=== PATIENT | female | born 1990 | race Caucasian/White ===

== ENCOUNTER 2025-05-21 08:41 | Outpatient (OUT) | payer SELFPAY ==
--- OUTSIDE RECORDS SUMMARY | 2025-05-21 08:51 | XMS_ITS | Encounter Summary ---
Author Organization [employer] Sys tem Address [id number] [address] [place] [address] Care Team Providers Care Community Planning Technician Name Role Phone Tonya Boles MD Primary Care Provider [phone] Encounter Details Date Type Department Care Team (Late st Contact Info) Description 07/19/2023 Telephone [facility]ne[facility] [address] [place] [address] Rica Jimenez Social History Tobacco Use Types Packs/Day Years Used Date Smoking Tobacco: Never Smokeless Tobacco: Never Alcohol Use Standard Drinks/Week Comments No 0 (1 standard drink = 0.6 oz pur e alcohol) Social Connection and Isolation Panel [NHANES] A nswer Date Recorded In a typical week, how many times do you talk on the phone with family, friends, or neighbors? Once a week 10/04/20 20 How often do you get togethe r with friends or relatives? Once a week 10/04/2020 How often do you attend chur ch or orthodoxy services? 1 to 4 times per year 10/04/2020 Do you belong to any clubs o r organizations such as tenriism groups, unions, fraternal or athletic groups, or school groups? Yes 10/04/2020 How often do you attend meet ings of the clubs or organizations you belong to? 1 to 4 times per year 10/04/2020 Are you , , di vorced, , never , or living with a partner? 10/04/2020 Overall Financial Resource Strain (CARDIA) Answe r Date Recorded How hard is it for you to pa y for the very basics like food, housing, medical care, and heating? Not hard at all 10/04/2020 PHQ-2 Answer Date Recorded Total Score 0 10/04/2020 [place] [facility] - Occupational Stress Questionnaire Answer Date Recorded Do you feel stress - tense, restless, nervous, or anxious, or unable to sleep at night because your mind is troubled all the time - these days? Not at all 10/04/2020 Exercise Vital Sign Answer Date Recorde d On average, how many days pe r week do you engage in moderate to strenuous exercise (like a brisk walk)? 0 days 10/04/2020 On average, how many minutes do you engage in exercise at this level? 0 min 10/04/2020 PRAPARE - Transportation Answer Date Re corded In the past 12 months, has l ack of transportation kept you from medical appointments or from getting medications? No 09/17 In the past 12 months, has l ack of transportation kept you from meetings, work, or from getting things needed for daily living? No 10/04/2020 [place] Depression Scale Answer Date Recorded [place] Depression Scale Total 3 11/21/2020 The thought of harming myself has occurred to me . Never 11/21/2020 Childcare Answer Date Recorded Do problems getting child ca re make it difficult for you to work or study? No 10/04/2020 Employment Answer Date Recorded Do you need help finding a [employer] career center and/or a training program? No 10/04/2020 Hunger Screening Answer Date Recorded Within the past 12 months we worried whether our food would run out before we got money to buy more. Never True 07/15/2023 Within the past 12 months th e food we bought just didn't last and we didn't have money to get more. Never True 07/15/2023 Purpose - Life Answer Date Recorded Purpose and direction in life Unknown Comments No Sex and Gender Information Value Date Recorded Sex Assigned at Not on file Legal Sex Female 11:46 AM EDT Gender Identity Not on file Sexual Orientation Not on file documented as of this encounter Miscellaneous Notes * Telephone Encounter - Rica Jimenez - 07/19/2023 1:36 PM EDT Patient called requesting the results for her HCG levels that she had drawn last week. Please advise. Thank you. * Telephone Encounter - Dari Estrada MD - 07/19/2023 1:36 PM EDT <5/NEGATIVE * Telephone Encounter - Torri Lazo LPN - 07/19/2023 1:36 PM EDT Pt aware of results. documented in this encounter Plan of Treatment Not on file documented as of this encounter Visit Diagnoses Not on filedocumented in this encounter Additional Health Concerns Assessment Noted Time PHQ-9 Depression Total Score: 0 10/04/20 20 10:11 PM EST documented as of this encounter Care Teams Community Planning Technician Relationship Specialty Start Date End Date Tonya Boles MD [address] [place] [address] PCP - General Family Medicine 03/29/17 documented as of this encounter
--- OUTSIDE RECORDS SUMMARY | 2025-05-21 08:51 | XMS_ITS | Clinical Summary ---
Author Organization [facility] Address [address] [place] [address] Care Team Providers Care Software Test Manager Name Role Phone Tonya Boles MD Primary Care Provider [phone] Allergies No known active allergies Medications MV-Min-Fe Fum-FA-DHA ( 1 PO) Take by mouth Active Docosahexaenoic Acid ( DHA) 200 MG capsuleIndicati ons: care, subsequent in first trimester ([facility]) Take 1 capsule by mouth Daily 30 capsule 11 08/23/2024 Active Encounters Date Type Department Care Team Description 04/25/2025 Patient Outreach [facility] [address] [place] [phone] Gladys Hodges LPN 04/23/2025 External Result Encounter [facility] External Department Unsolicited Hai Chow MD 04/22/2025 External Result Encounter [facility] External Department Unsolicited Hai Chow MD 04/22/2025 External Result Encounter [facility] External Department Unsolicited Hai Chow MD 04/22/2025 External Result Encounter [facility] External Department Unsolicited Hai Chow MD 04/22/2025 External Result Encounter [facility] External Department Unsolicited Hai Chow MD 04/22/2025 External Result Encounter [facility] External Department Unsolicited Hai Chow MD 04/20/2025 External Result Encounter [facility] External Department Unsolicited Hai Chow MD 04/17/2025 2:45 PM EDT Routine [facility] [address] [place] [address] Tr Baron MD Supervision of normal intrauterine in multigravida, third trimester ([facility]) (Primary Dx); 40 weeks gestation of ([facility]); 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 ([facility]) 04/17/2025 Bamboo flowsheet [facility] [address] [place] [phone] Tr Baron MD 04/17/2025 Travel 04/10/2025 2:00 PM EDT Routine [facility] [address] [place] [address] Rindayton, Tina E, DO 39 weeks gestation of ([facility]) 04/10/2025 Bamboo flowsheet [facility] [address] [place] [address] Rinkes, Tina E, DO 04/10/2025 Travel 04/03/2025 2:00 PM EDT Routine [facility] [place] [facility] [address] [place] [address] Rinkes, Tina E, DO 38 weeks gestation of ([facility]) 04/03/2025 Bamboo flowsheet [facility] [address] [place] [address] Rinkes, Tina E, DO 04/03/2025 Travel 03/27/2025 2:00 PM EDT Routine [facility] [place] [facility] [address] [place] [address] Rinkes, Tina E, DO 37 weeks gestation of ([facility]) 03/27/2025 Bamboo flowsheet [facility] [address] [place] [address] Rinkes, Tina E, DO 03/27/2025 Travel 03/20/2025 2:00 PM EDT Routine [facility] [place] [facility] [address] [place] [address] Tina Vega, DO 36 weeks gestation of ([facility]) 03/20/2025 Bamboo flowsheet [facility] [address] [place] [address] Tina Vega, DO 03/20/2025 Travel 03/13/2025 10:15 AM EDT Routine [facility] [address] [place] [place] [address] Tina Vega, DO 35 weeks gestation of ([facility]); screening for streptococcus B ([facility]) 03/13/2025 9:30 AM EDT Ancillary Procedure [facility] [address] [place] [place] [phone] History of pre-eclampsia in prior , currently in third trimester ([facility]); Encounter for ultrasound to check growth ([facility]) 03/13/2025 Travel 02/27/2025 3:30 PM EDT Routine [facility] [address] [place] [place] [address] Tina Vega, DO 33 weeks gestation of ([facility]) 02/27/2025 Bamboo flowsheet [facility] [address] [place] [address] Tina Vega, DO 02/27/2025 Travel from Last 3 Months Social History Tobacco Use Types Packs/Day Years Used Date Smoking Tobacco: Never Smokeless Tobacco: Never Tobacco Cessation:Counseling Given: Not Answered Alcohol Use Standard Drinks/Week Comments Not Currently 0 (1 standard drink = 0.6 oz pure alcohol) Caffeine intake: Occassionally PHQ-2 Answer Date Recorded Patient Health Questionnaire-2 Score 0 04/25/2025 Comments No Sex and Gender Information Value Date Recorded Sex Assigned at Not on file Legal Sex Female 6:33 PM EDT Gender Identity Not on file Sexual Orientation Not on file Last Filed Vital Signs Vital Sign Reading Time Taken Comments Blood Pressure 130/84 04/18/2025 8:17 AM EDT Pulse - - Temperature - - Respiratory Rate - - Oxygen Saturation - - Inhaled Oxygen Concentration - - Weight 80.7 kg (178 lb) 04/18/2025 8:17 AM EDT Height 162.6 cm (5' 4 ) 06/09/2022 12:00 PM EDT Body Mass Index 30.55 06/09/2022 12:00 PM EDT Plan of Treatment Upcoming Encounters Date Type Department Care Team (Late st Contact Info) Description 06/05/2025 11:15 AM EDT Visit [facility] [place] [facility] [address] [place] [address] Tina Vega DO [address] [place] [address] Procedures Procedure Name Priority Date/Time Associated Diagnosis Comments CBC WITH AUTO DIFFERENTIAL Routine 04/23/2025 7:04 AM EDT RPR W/RFX TO QUANT & TP ABS ([facility]) STAT 04/22/2025 5:50 AM EDT CBC WITH AUTO DIFFERENTIAL STAT 04/22/2025 5:50 AM EDT AMNISURE(PAMG-1) STAT 04/22/2025 5:31 AM EDT OB URINE DRUG SCREEN (NO THC) STAT 04/22/2025 5:30 AM EDT URINALYSIS REFLEX STAT 04/22/2025 5:3 0 AM EDT URINALYSIS REFLEX STAT 04/20/2025 10: 15 AM EDT POCT URINALYSIS DIPSTICK Routine 04/18/2025 8:17 AM EDT 40 weeks gestation of ([facility]) POCT URINALYSIS 4 DIPSTICK Routine 04/10/2025 2:21 PM EDT 39 weeks gestation of ([facility]) POCT URINALYSIS 4 DIPSTICK Routine 04/03/2025 2:02 PM EDT 38 weeks gestation of ([facility]) POCT URINALYSIS 4 DIPSTICK Routine 03/27/2025 1:53 PM EDT 37 weeks gestation of ([facility]) POCT URINALYSIS 4 DIPSTICK Routine 03/20/2025 2:07 PM EDT 36 weeks gestation of ([facility]) US OB FOLLOW UP TRANSABDOMINAL APPROACH Routine 03/13/2025 10:32 AM EDT History of pre-eclampsia in prior , currently in third trimester ([facility]) Encounter for ultrasound to check growth ([facility]) POCT URINALYSIS 4 DIPSTICK Routine 03/13/2025 10:20 AM EDT 35 weeks gestation of ([facility]) STREP B SCREEN Routine 03/13/2025 10:15 AM EDT screening for streptococcus B ([facility]) POCT URINALYSIS 4 DIPSTICK Routine 02/27/2025 3:27 PM EDT 33 weeks gestation of ([facility]) from Last 3 Months Results * (ABNORMAL) CBC auto differential (04/23/2025 7:04 AM EDT) Only the most recent of2 resultswithin the time period is included. WBC 10.5 3.8 - 11.6 [CFU]/mL 04/23/2025 7:16 AM EDT [facility] UNCORRECTED WHITE BLOOD COUNT 10.5 3.8 - 11.6 10*3/uL 04/23/2025 7:16 AM EDT [facility] RBC 4.05 3.60 - 5.00 10*6/uL 04/23/2025 7:16 AM EDT [facility] HEMOGLOBIN 12.5 11.8 - 15.4 g/dL 04/23/2025 7:16 AM EDT [facility] HEMATOCRIT 36.6 34.0 - 46.4 % 04/23/2025 7:16 AM EDT [facility] MCV 90.3 80 - 100 fL 04/23/2025 7:16 AM EDT [facility] MCH 30.9 24.7 - 34.3 pg 04/23/2025 7:16 AM EDT [facility] MCHC 34.2 32.0 - 35.0 g/dL 04/23/2025 7:16 AM EDT [facility] RED CELL DISTRIBUTION WIDTH, RDW 13.5 11.9 - 15.3 % 04/23/2025 7:16 AM EDT [facility] PLATELET COUNT 146(L) 150 - 450 10*3/uL 04/23/2025 7:16 AM EDT [facility] MEAN PLATELET VOLUME, MPV 9.4 6.3 - 10.7 fL 04/23/2025 7:16 AM EDT [facility] NEUTROPHILS, % 80.7 . % 04/23/2025 7:16 AM EDT [facility] LYMPHOCYTES, % 12.9 . % 04/23/2025 7:16 AM EDT [facility] MONOCYTE/MACROPHA GE, % 5.8 . % 04/23/2025 7:16 AM EDT [facility] EOSINOPHILS, % 0.3 . % 04/23/2025 7:16 AM EDT [facility] BASOPHILS, % 0.3 . % 04/23/2025 7:16 AM EDT [facility] NRBC 0.1 0 - 0.5 /100{WBC} 04/23/2025 7:16 AM EDT [facility] NEUTROPHILS 8.5(H) 1.8 - 7.7 10*3/uL 04/23/2025 7:16 AM EDT [facility] LYMPHOCYTES 1.3 1.00 - 4.8 10*3/uL 04/23/2025 7:16 AM EDT [facility] MONOCYTES 0.6 0.0 - 0.8 10*3/uL 04/23/2025 7:16 AM EDT [facility] EOSINOPHILS 0.0 0.0 - 0.45 10*3/uL 04/23/2025 7:16 AM EDT [facility] BASOPHILS 0.0 0.0 - 0.2 10*3/uL 04/23/2025 7:16 AM EDT [facility] Blood (Blood) 04/23/2025 7:0 4 AM EDT 04/23/2025 7:07 AM EDT [facility] - 04/23/2025 7:16 AM EDT Comment Draw at 630 am us Hai Chow MD LAB BLOOD ORDERABLES Final Res ult [facility] [address] [place] [address], [facility] [address] [place] [address] * RPR W/RFX TO QUANT & TP ABS ([facility]) (04/22/2025 5:50 AM EDT) RPR, RFX QUANT RPR Non Reactive Non Reactive 04/24/2025 5:07 AM [facility] RPR INTERPRETATION Comment . 04/24/2025 5:07 AM T [facility] Comment: Syphilis: RPR with Reflex to RPR Titer and Treponemal Antibodies, Traditional Screening and Diagnosis Algorithm Treponemal RPR RPR, Qn Ab Final Interpretation -------- --------- Non N/A N/A No laboratory evidence Reactive of syphilis. Retest in 2-4 weeks if recent exposure is suspected. -------- --------- Reactive >/=1:1 Non Nontreponemal antibodies Reactive detected. Syphilis unlikely; biological false positive possible. Retest in 2-4 weeks if recent exposure is suspected. -------- --------- Reactive >/=1:1 Reactive Treponemal and nontreponemal antibodies detected. Consistent with past or current (potential early) syphilis. Performed at: [address] [id number] Solder Deposit Operator: Thierno Kay PhD, Phone: [phone] Other Topography unknown / Unknown 04/22/2025 5:50 AM EDT 04/22/2025 5:59 AM EDT Hai Chow MD LAB BLOOD ORDERABLES Final Res ult Performing Organization Address City/[facility]/[place] [address], * AMNISURE(PAMG-1) (04/22/2025 5:31 AM EDT) AMNISURE Positive Negative 04/22/2025 5:54 AM EDT [facility] Other Topography unknown / Unknown 04/22/2025 5:31 AM EDT 04/22/2025 5:42 AM EDT Narrative [facility] - 04/22/2025 5:54 AM EDT Comment For suspected repture of membranes Hai Chow MD LAB BLOOD ORDERABLES Final Res ult Performing Organization Address [facility]/[place] [address], [place] [address] * OB URINE DRUG SCREEN (NO THC) (04/22/2025 5:30 AM EDT) AMPHETAMINE SCREEN,URINE Negative Negative 04/22/2025 6:18 AM EDT [facility] BARBITURATE SCREEN,URINE Negative Negative 04/22/2025 6:18 AM EDT [facility] BENZODIAZEPINES SCREEN,URINE Negative Negative 04/22/2025 6:18 AM EDT [facility] COCAINE SCREEN,URINE Negative Negative 04/22/2025 6:18 AM EDT [facility] OPIATE SCREEN,URINE Negative Negative 04/22 6:18 AM EDT [facility] PHENCYCLIDINE SCREEN, URINE Negative Negative 04/22/2025 6:18 AM EDT [facility] Comment: These are unconfirmed results and should not be used for legal purposes. Drug Cut-Off Concentration: AMPH 1000 ng/mL PRIMITIVO 200 ng/mL BRYAN 200 ng/mL COCM 300 ng/mL OP 300 ng/mL PCP 25 ng/mL Other 04/22/2025 5:30 AM EDT 04/22/2025 5:42 AM EDT Narrative [facility] - 04/22/2025 6:18 AM EDT Comment s/s of acute impairment us Hai Chow MD LAB BLOOD ORDERABLES Final Res ult [facility] [address] [place] [address], [facility] [address] [place] [address] * Urinalysis with reflex microscopic (04/22/2025 5:30 AM EDT) Only the most recent of2 resultswithin the time period is included. COLOR,URINE Colorless Yellow 04/22/2025 5:50 AM EDT [facility] APPEARANCE,URI NE Clear Clear 04/22/2025 5:50 AM EDT [facility] SPECIFICY GRAVITY,URINE 1.010 1.001 - 1.030 04/22/2025 5:50 AM T [facility] PH,URINE 7.5 5.0 - 9.0 04/22/2025 5:50 AM EDT [facility] LEUKOCYTE ESTERASE,URINE Negative Negative 04/22/2025 5:50 AM EDT [facility] NITRITE,URINE Negative Negative 04/22[facility] Negative Negative mg/dL 04/22/2025 5:[facility] GLUCOSE,URINE (UA) Normal Normal mg/dL 04/22/2025 5:[facility] KETONES,URINE Negative Negative 04/22/2025 5:50 AM EDT [facility] UROBILINOGEN,U RINE Normal Normal mg/dL 04/22/2025 5:50 [facility] BILIRUBIN,URIN E Negative Negative 04/22/2025 5:[facility] OCCULT BLOOD,URINE Trace Negative 04/22/2025 5:[facility] RBC,URINE 1-2 0 - 4 [HPF] 04/22/2025 5:52 AM EDT [facility] WBC,URINE 1-2 0 - 4 [HPF] 04/22/2025 5:52 [facility] SQUAMOUS EPITHELIAL CELL,URINE 3-4 0 - 2 [HPF] 04/22/2025 5:52 AM [facility] BACTERIA,URINE Rare None Seen [HPF] 04/22/2025 5:52 AM [facility] HYALINE CASTS,URINE None 0 - 8 [LPF] 04/22/2025 5:52 AM [facility] Other 04/22/2025 5:30 AM EDT 04/22/2025 5:42 AM EDT Narrative [facility] - 04/22/2025 5:52 AM EDT Comment c/o urinary symptoms or increased blood pressure Name Collection Type:: Clean-Voided Midstream us Hai Chow MD LAB URINE ORDERABLES Final Res ult [facility] [address] [place] [address], [facility] [address] [place] [address] * Urine dip (04/18/2025 8:17 AM EDT) Glucose, UA Negative Negative - 2000(110) ++++ mg/dL Protein, UA Negative Negative - 1999(20) ++++ mg/dL Urine 04/18/2025 8:17 AM EDT us Tr Baron MD POINT OF CARE TEST ENTER/EDIT ORDERABLES Final Result * POCT URINALYSIS 4 DIPSTICK (04/10/2025 2:21 PM EDT) Only the most recent of6 resultswithin the time period is included. Glucose, UA Negative Negative - 1999(110) ++++ mg/dL Protein, UA Negative Negative - 1999(20) ++++ mg/dL Urine 04/10/2025 2:21 PM EDT Tina Vega DO POINT OF CARE TEST ENTER/ED IT ORDERABLES Final Result * US OB follow up transabdominal approach (03/13/2025 10:32 AM EDT) Anatomical Region Laterality Modality Body Ultrasound Study GA Study Date Study TEENA Working TEENA (Source) 03/13/2025 04/17/2025 (Last Menstrua l Period) Fetus A Measurements Value GA (days) Biparietal Diameter Head Circumference Abdominal Circumference Femur Length Ulna Length Humerus Length Tibia Length Amniotic Fluid Index Quadrant 1 Amniotic Fluid Index Quadrant 2 Amniotic Fluid Index Quadrant 3 Amniotic Fluid Index Quadrant 4 Amniotic Fluid Index Deep Vertical Pocket UA SD Ratio UA Resistance Index UA Pulsatility Index MCA SD Ratio MCA Resistance Index MCA Pulsatility Index Heart Rate TWIN DISCORDANCE CERVICAL W/FUNDAL PRESSURE CERVICAL W/ VALSALVA Narrative 03/21/2025 12:51 PM EDT There is a single intrauterine visualized. Overall, biometry is consistent with the established dates. The AC measures at the 97th percentile. The EFW is in the 82% . The anatomy visualized appears normal. The amniotic fluid index measures 11.3 cm. us Tina Vega DO IMG OB US PROCEDURES Final Result * Strep B screen (03/13/2025 10:15 AM EDT) [facility] ORGANISM Strep agalactiae - (group b) 03/15/2025 8:45 AM EDT [facility] Swab Vaginal swab / Unknown 03/13/2025 10:15 AM EDT 03/13/2025 3:35 PM EDT Tina Vega DO LAB MICROBIOLOGY - GENERAL ORDERABLES Final Result Performing Organization Address City/State/[facility] Co de Phone Number [facility] [address] [place] [address], [facility] [address] [place] [address] from Last [address] [place] [address] [facility] Care Teams Software Test Manager Relationship Specialty Start Date End Date Tonya Boles MD PCP - General Family Medicine 02/23/23
--- OUTSIDE RECORDS SUMMARY | 2025-05-21 08:51 | XMS_ITS | Encounter Summary ---
Author Organization [facility] Address [id number] [address] [place] [address] Care Team Providers Care Promotions Firm Accounts Manager Name Role Phone Tonya Boles MD Primary Care Provider [phone] Encounter Details Date Type Department Care Team (Late st Contact Info) Description 07/10/2020 Telephone [facility] Women's Services - [facility] [address] [place] [address] Mary Jo Pedro MA Social History Tobacco Use Types Packs/Day Years Used Date Smoking Tobacco: Never Smokeless Tobacco: Never Alcohol Use Standard Drinks/Week Comments No 0 (1 standard drink = 0.6 oz pur e alcohol) Childcare Answer Date Recorded Childcare Unknown 03/29/2019 Employment Answer Date Recorded Employment Unknown 03/29/2019 Comments Yes Sex and Gender Information Value Date Recorded Sex Assigned at Not on file Legal Sex Female 11:46 AM EDT Gender Identity Not on file Sexual Orientation Not on file COVID-19 Exposure Response Date Recorded In the last month, have you been in contact with someone who was confirmed or suspected to have Coronavirus / COVID-19? No / Unsure 07/04/2020 8:45 AM EDT documented as of this encounter Miscellaneous Notes * Telephone Encounter - Mary Jo Pedro MA - 07/10/2020 1:58 PM EDT Patient called asking for her 28 week lab results Results given to patient. Clarified And ok'd withINES Chacko MA 07/10/20 1400 * Telephone Encounter - Mary Jo Pedro MA - 07/10/2020 1:58 PM EDT Patient called with UTI symptoms- She is going to stop by office and drop Urine off to send. I let patient know we would let her know if prescription needs sent. Mary Jo Pedro MA 07/12/20 0811 documented in this encounter Plan of Treatment Not on file documented as of this encounter Visit Diagnoses Not on filedocumented in this encounter Additional Health Concerns Infection Onset Date Last Indicated Resolved Time COVID-19 Rule-Out 10/04/2020 10/04/2020 10/04/2020 9:34 PM EST documented as of this encounter Care Teams Promotions Firm Accounts Manager Relationship Specialty Start Date End Date Elvi, Tonya Larson MD [address] [place] [address] PCP - General Family Medicine 03/29/17 documented as of this encounter
--- OUTSIDE RECORDS SUMMARY | 2025-05-21 08:51 | XMS_ITS | Clinical Summary ---
Author Organization [facility] tem Address [id number] [address] [place] [address] Care Team Providers Care Quilting Machine Helper Name Role Phone Tonya Boles MD Primary Care Provider [phone] Allergies No known active allergies Medications [id number]-[id number] 9-dha 31 mg iron- 1 mg-200 mg capsuleIndicati ons:Patient desires Take 1 capsule by mouth in the morning. 90 capsule 3 07/15/2023 Active magnesium oxide (MAGOX) 400 mg tablet Take 1 tablet (400 mg total) by mouth in the morning. Active Active Problems Problem Noted Date Diagnosed Date Acute headache 01/17/2025 History of pre-eclampsia 01/17/2025 H/O section 11/21/2020 H/O maternal third degree pe rineal laceration, currently 04/29/2020 H/O acute pancreatitis 01/14/2017 Estimated Date of Delivery Comme nts Yes 04/17/2025 Based on Patient Reported Resolved Problems Problem Noted Date Diagnosed Date Resolved Date Acute headache 02/27/2020 09/02/2020 Overview (02/27/2020): Mg 400 mg/day ordered Immunizations Immunization Administration Dates Next Due Tdap 07/25/2020, 7(Deferred: - Pt states she already had TDAP vaccine),06/10/2017 Family History Medical History Relation Name Comments Other Father MVA Diabetes Maternal Grandfather No Known Problems Maternal Grandmother No Known Problems Mother Diabetes Paternal Grandfather Other Paternal Grandfather Natural Causes Other Paternal Grandmother Natural Causes Breast cancer Neg Hx Colon cancer Neg Hx Ovarian cancer Neg Hx Stroke Neg Hx Relation Name Status Comments Father Maternal Grandfather Maternal Grandmother Alive Mother Alive Paternal Grandfather Paternal Grandmother Social History Tobacco Use Types Packs/Day Years Used Date Smoking Tobacco: Never Smokeless Tobacco: Never Alcohol Use Standard Drinks/Week Comments No 0 (1 standard drink = 0.6 oz pur e alcohol) [facility] Utilities Answer Date Recorded In the past 12 months has th e electric, gas, oil, or water company threatened to shut off services in your home? No 01/17/2025 Social Connection and Isolation Panel [NHANES] A nswer Date Recorded In a typical week, how many times do you talk on the phone with family, friends, or neighbors? Once a week 10/04/20 How often do you get togethe r with friends or relatives? Once a week 10/04/2020 How often do you attend chur ch or restorationist services? 1 to 4 times per year 10/04/2020 Do you belong to any clubs o r organizations such as jehovah's witness groups, unions, fraternal or athletic groups, or [...] Answer Date Recorded Total Score 0 10/04/2020 [facility] of Occupat ional Health - Occupational Stress Questionnaire Answer Date Recorded [...] medical appointments or from getting medications? No 11/2024 In the past 12 months, has l ack of transportation kept you from meetings, work, or from getting things needed for daily living? No 01/17/2025 [place] Depression Scale Answer Date Recorded [place] Depression Scale Total 3 11/21/2020 The thought of harming myself has occurred to me . Never 11/21/2020 Housing Instability Answer Date Recorde d Are you worried or concerned that in the next two months you may not have stable housing that you own, rent or stay in as a part of a household? No 01/17/2025 Childcare Answer Date Recorded Do problems getting child ca re make it difficult for you to work or study? No 10/04/2020 Employment Answer Date Recorded Do you need help finding a [employer] career center and/or a training program? No 10/04/2020 Hunger Screening Answer Date Recorded Within the past 12 months we worried whether our food would run out before we got money to buy more. Never True 01/17/2025 Within the past 12 months th e food we bought just didn't last and we didn't have money to get more. Never True 01/17/2025 Purpose - Life Answer Date Recorded Purpose and direction in life Unknown Estimated Date of Delivery Comme nts Yes 04/17/2025 Based on Patient Reported Sex and Gender Information Value Date Recorded Sex Assigned at Not on file Legal Sex Female 11:46 AM EDT Gender Identity Not on file Sexual Orientation Not on file Last Filed Vital Signs Vital Sign Reading Time Taken Comments Blood Pressure 120/73 01/17/2025 5:00 PM EDT Pulse 66 01/17/2025 5:00 PM EDT Temperature 36.7 C (98.1 F) 01/17/2025 4:00 PM EDT Respiratory Rate 16 01/17/2025 5:00 PM EDT Oxygen Saturation 99% 10/06/2020 9:18 PM EST Inhaled Oxygen Concentration - - Weight 56.7 kg (125 lb) 07/15/2023 3:26 PM EDT Height 162.6 cm (5' 4 ) 07/15/2023 3:26 PM EDT Body Mass Index 21.46 07/15/2023 3:26 PM EDT Plan of Treatment Health Maintenance Due Date Last Done Comments Depression Screening 11/21/2021 11/21/2020 Pap Smear 04/02/2023 04/02/2020, 12/14/2016 Adult BMI Screening 07/15/2024 07/15/2023 Influenza Vaccine 06/18/2025 07/02/2020, , 11/17/2016 Tobacco Screening 01/17/2026 01/17/2025 DTaP,Tdap and Td Vaccines (1 0 - Td or Tdap) 07/25/2030 07/25/2020, 06/10/2017, 07/15/2011, Additional history exists Medical Devices Not on file Procedures Procedure Name Priority Date/Time Associated Diagnosis Comments PAP SMEAR Routine 04/02/2020 11:15 AM EDT Cervical smear, as part of routine gynecological examination 12 weeks gestation of from Last 3 Months or Most Recently Relevant to Health Maintenance Results * Pap Smear (04/02/2020 11:15 AM EDT) 04/02/2020 11:1 5 AM EDT 04/03/2020 11:16 AM EDT Narrative COPATH - 04/05/2020 9:55 AM EDT [facility] [address] [place] [address] Gynecologic Cytology Consultation Patient Name: DONNELL HUNTER : 1990 (Age: 29) Gender: F Taken: 04/02/2020 Reported: 04/05/2020 Physician(s): LIZ Carter ([phone]) Copy To: [facility]. Rec. #: [id number] Acct: # [id number] Final Cytologic Interpretation ThinPrep Pap Test (Cervical): Satisfactory for evaluation. A transformation zone component is present. NEGATIVE FOR INTRAEPITHELIAL LESION OR MALIGNANCY. [facility]/04/05/2020 Interpretation performed at [facility], [address] [place] [address], License number: [id number]. Electronically Signed Out By Neymar Cancelli, CT(ASCP) Date of Last Menstrual Period: 01/05/2020 Other Clinical Conditions: Z01.419 Bending Shed Worker exam wo/abn findings Z3A.12 Source of Specimen ThinPrep Pap Test (Cervical) Thin Prep Pap (GREENHOUSE SPECIALIST) Fee Code(s): G0145 The Pap test is a screening test with an inherent, but low, probability of error. The Pap test is primarily effective for the diagnosis and prevention of squamous cell carcinoma. Regular screening is critical for prevention. ThinPrep liquid-based slides, which meet the Recovery Room Nurse criteria for automated screening, have been screened by the BOARDZPrep Imaging System (as of 07/04/07) along with an additional manual rescreening by a auto mechanic and, if indicated, by a pathologist. Ginna Romo BUSINESS PROPOSAL REP-TOOL TECHNICIAN PATHOLOGY/CYTOLOGY ORDER CHYNA Final Result COPATH from Last 3 Months or Most Recently Relevant to Health Maintenance Insurance ANTHEM Advance Directives * Full Code (Latest Code Status on File) Date Activated Date Inactivated Comments 10/04/2020 10:15 PM 10/07/2020 11:18 AM * Full Code Date Activated Date Inactivated Comments 10/04/2020 1:57 PM 10/04/2020 7:32 PM * Full Code Date Activated Date Inactivated Comments 07/23/2017 10:19 PM 07/24/2017 5:32 PM Care Teams Quilting Machine Helper Relationship Specialty Start Date End Date Sundayly, Tonya Larson MD [address] [place] [address] PCP - General Family Medicine 03/29/17
--- OUTSIDE RECORDS SUMMARY | 2025-05-21 08:51 | XMS_ITS | Encounter Summary ---
Author Organization [employer] tem Address [id number] [address] [place] [address] Care Team Providers Care Assessor Name Role Phone Tonya Boles MD Primary Care Provider [phone] Reason for Visit * Reason Comments Med Refill Encounter Details Date Type Department Care Team (Late st Contact Info) Description 04/19/2020 Refill [facility]ne[facility] [address] [place] [id number] Ginna Romo, FORMING AND ASSEMBLING SUPERVISOR-BUS INFO CONSULTANT [address] [facility] [place], [place] [id number] 12 weeks gestation of Social History Tobacco Use Types Packs/Day Years [...] have Coronavirus / COVID-19? No / Unsure 04/02/2020 3:30 PM EDT documented as of this encounter Plan of Treatment Not on file documented as of this encounter Visit Diagnoses Diagnosis 12 weeks gestation of documented in this encounter Additional Health Concerns Infection Onset Date Last Indicated Resolved Time COVID-19 Rule-Out 10/04/2020 10/04/2020 10/04/2020 9:34 PM EST documented as of this encounter Care Teams Assessor Relationship Specialty Start Date End Date Wonderly, Tonya Larson MD [address] [place] [address] PCP - General Family Medicine 03/29/17 documented as of this encounter
== END 2025-05-21 13:55 | disposition home or self-care (01) ==
LOC: FBCO 08:49
PROVIDERS: Visit Provider Obstetrics & Gynecology
DX: Z39.1 Encounter for care and examination of lactating mother (principal)

== ENCOUNTER 2025-05-29 08:15 | Outpatient (OUT) | payer SELFPAY ==
--- OUTSIDE RECORDS SUMMARY | 2025-05-16 20:16 | XMS_ITS | Continuity of Care Document ---
Author Organization [facility] Address [address] [place] [address] Phone Care Team Providers Care Rodding Machine Tender Name Role Phone Tina Vega DO Attending Provider [phone] NO FAMILY, PHYSICIAN Primary Care Provider Unava Belia Negrete MD Attending Provider [phone] Hai Chow MD Attending Provider Hai Chow MD Admit Provider Obinna Gray MD Attending Provider Summer Barillas MD Attending Provider Care Teams Patient Care Team Team Status: Active Member Role Status Dates PHYSICIAN NO FAMILY Primary Care Provider Active Visit Care Team Team Status: Inactive Member Role Status Dates Tina Vega DO Attending Provider Active S tart: March 13, 2025 End: March 13, 2025 Visit Care Team Team Status: Inactive Member Role Status Dates PHYSICIAN NO FAMILY Primary Care Provider Active Start: April 17, 2025 End: April 17, 2025 Belia Marin MD Attending Provider Active Star t: April 17, 2025 End: April 17, 2025 Visit Care Team Team Status: Inactive Member Role Status Dates PHYSICIAN NO FAMILY Primary Care Provider Active Start: April 20, 2025 End: April 20, 2025 Hai Chow MD Attending Provider Active St art: April 20, 2025 End: April 20, 2025 Visit Care Team Team Status: Inactive Member Role Status Dates PHYSICIAN NO FAMILY Primary Care Provider Active Start: April 22, 2025 End: April 23, 2025 Hai Chow MD Admit Provider Active Start: April 22, 2025 End: April 23, 2025 Hai Chow MD Attending Provider Active St art: April 22, 2025 End: April 23, 2025 Visit Care Team Team Status: Inactive Member Role Status Dates PHYSICIAN NO FAMILY Primary Care Provider Active Start: April 25, 2025 End: April 25, 2025 Obinna Gray MD Attending Provider Active Start: April 25, 2025 End: April 25, 2025 Visit Care Team Team Status: Inactive Member Role Status Dates PHYSICIAN NO FAMILY Primary Care Provider Active Start: May 11, 2025 End: May 11, 2025 Summer Barillas MD Attending Provider Active Star t: May 11, 2025 End: May 11, 2025 Patient Care Team Team Status: Inactive Member Role Status Dates PHYSICIAN NO FAMILY Primary Care Provider Active Start: May 16, 2025 End: May 16, 2025 Obinna Gray MD Attending Provider Active Start: May 16, 2025 End: May 16, 2025 Chief Complaint and Reason for Visit Chief Complaint Admit Date Z36.85 March 13, 2025 10:15 am NST April 17, 2025 2:31p m 40 wks contractions April 20, 2025 9:31a m 40 weeks IUP, Contractions April 22 4:51am z39.1 April 25, 2025 1:39p m 092.4 May 11, 2025 10:3 5am 092.4 May 16, 2025 1:23 pm Reason for Visit Admit Date 40 weeks gestation of April 4:51am (vaginal after ) April 22, 2025 4:51am Reason for Referral Referring Provider Name Referring Provider Address Referring Provider Phone Referral Date Requested Appointment Date Referral Reason Belia Marin [address] [facility] [address] Work Phone: Please keep appointment this coming week. Please marissa p appointment this coming week. Allergies, Adverse Reactions, Alerts Allergen Type Severity Reaction Last Updated Verified Status No Known Allergies Allergy Unknown April 17, 2025 2:55pm Yes Active Social History Smoking Status Status Start Date End Date Date of Observa tion Never smoked tobacco (finding) April 22, 2025 5:25pm Observation Status Observation Response Date of Response Legal Sex Female (finding) Sex Assigned At Female December Family History Relationship Condition Age at Onset Recorded Date/T patt Not Specified No pertinent family history Unknown father Unknown Problems Inactive/Resolved Problems Medical Problem Onset Date Status 40 weeks gestation of Unknown Resolved (vaginal after ) Unknown Resolved Medications Medication Status Dose Units Route Directions Qty Days St art Date Stop Date End Date Instructions Adherence Vit No.126-Iron -Folic (Classic ) 28 mg iron- 800 mcg tablet Active 1 TAB PO Daily April 22, 2025 12:00a m Unknown Immunizations Immunization Event Date Not Given Reason Dose Number Kiln Tender Lot Number Vaccine Information Statement (VIS) Detail Administration Location Tetanus, Diphtheria, Pertussis (Tdap) April 23, 2025 Patient Refused [facility] Procedures Procedure Date Performed Status Group B Streptococcus Culture March 13, 2025 co mpleted Delivery of Products of Conception, External Allison remy April 22, 2025 active Repair Perineum Muscle, Open Approach April 22, 2025 active Relevant Diagnostic Tests and/or Laboratory Data Laboratory Results Test Collection Date/Time Result Date/Time Result Interpretation Reference Range Result Comment Performing Site Correcte d White Blood Count April 23, 2025 7:04am April 23, 2025 7:16am 10.5 10*3/uL 3.8-11.6 [facility] [id number] [address] [facility] [address] Uncorrec kvng WBC Count April 23, 2025 7:04am April 23, 2025 7:16am 10.5 10*3/uL 3.8-11.6 [facility] [id number] [address] [facility] [address] Red Blood Count April 23, 2025 7:04am April 23, 2025 7:16am 4.05 10*6/uL 3.60-5.00 [facility] [id number] [address] [facility] [address] Hemoglob in April 23, 2025 7:04am April 23, 2025 7:16am 12.5 g/dL 11.8-15.4 [facility] [id number] [address] [facility] [address] Hematocr it April 23, 2025 7:04am April 23, 2025 7:16am 36.6 % 34.0-46.4 [facility] [id number] [address] [facility] [address] Mean Corpuscu lar Volume April 23, 2025 7:04am April 23, 2025 7:16am 90.3 fL 80-100 [facility] [id number] [address] [facility] [address] Mean Corpuscu lar Hemoglob in April 23, 2025 7:04am April 23, 2025 7:16am 30.9 pg 24.7-34.3 [facility] [id number] [address] [facility] [address] Mean Corpuscu lar Hemoglob in Concent April 23, 2025 7:04am April 23, 2025 7:16am 34.2 g/dL 32.0-35.0 [facility] [id number] [address] [place] [address] Red Cell Distribu tion Width April 23, 2025 7:04am April 23, 2025 7:16am 13.5 % 11.9-15.3 [facility] [id number] [address] [facility] [address] Platelet Count April 23, 2025 7:04am April 23, 2025 7:16am 146 10*3/uL Below low normal 150-450 [facility] [id number] [address] [facility] [address] Mean Platelet Volume April 23, 2025 7:04am April 23, 2025 7:16am 9.4 fL 6.3-10.7 [facility] [id number] [address] [facility] [address] Neutroph ils (%) (Auto) April 23, 2025 7:04am April 23, 2025 7:16am 80.7 % . [facility] [id number] [address] [facility] [address] Lymphocy hemant (%) (Auto) April 23, 2025 7:04am April 23, 2025 7:16am 12.9 % . [facility] [id number] [address] [place] [address] Monocyte s (%) (Auto) April 23, 2025 7:04am April 23, 2025 7:16am 5.8 % . [facility] [id number] [address] [facility] [address] Eosinoph ils (%) (Auto) April 23, 2025 7:04am April 23, 2025 7:16am 0.3 % . [facility] [id number] [address] [facility] [address] Basophil s (%) (Auto) April 23, 2025 7:04am April 23, 2025 7:16am 0.3 % . [facility] [id number] [address] [facility] [address] Nucleate d RBC Relative Count (auto) April 23, 2025 7:04am April 23, 2025 7:16am 0.1 /100{WBC} 0-0.5 [facility] [id number] [address] [facility] [address] Neutroph ils # (Auto) April 23, 2025 7:04am April 23, 2025 7:16am 8.5 10*3/uL Above high normal 1.8-7.7 [facility] [id number] [address] [facility] [address] Lymphocy hemant # (Auto) April 23, 2025 7:04am April 23, 2025 7:16am 1.3 10*3/uL 1.00-4.8 [facility] [id number] [address] [facility] [address] Monocyte s # (Auto) April 23, 2025 7:04am April 23, 2025 7:16am 0.6 10*3/uL 0.0-0.8 [facility] [id number] [address] [facility] [address] Eosinoph ils # (Auto) April 23, 2025 7:04am April 23, 2025 7:16am 0.0 10*3/uL 0.0-0.45 [facility] [id number] [address] [facility] [address] Basophil s # (Auto) April 23, 2025 7:04am April 23, 2025 7:16am 0.0 10*3/uL 0.0-0.2 [facility] [id number] [address] [facility] [address] Urine Color April 20, 2025 10:15am April 20, 2025 10:45am Light-yell ow Yellow [facility] [id number] [address] [facility] [address] Urine Color April 22, 2025 5:30am April 22, 2025 5:50am Colorless Yellow [facility] [id number] [address] [facility] [address] Urine Appearan ce April 20, 2025 10:15am April 20, 2025 10:45am Cloudy Abnormal (applies to non-numeric results) Clear [facility] [id number] [address] [facility] [address] Urine Appearan ce April 22, 2025 5:30am April 22, 2025 5:50am Clear Clear [facility] [id number] [address] [facility] [address] Urine Specific [place] April 20, 2025 10:15am April 20, 2025 10:45am 1.006 1.001-1.03 0 [facility] [id number] [address] [facility] [address] Urine Specific [place] April 22, 2025 5:30am April 22, 2025 5:50am 1.010 1.001-1.03 0 [facility] [id number] [address] [facility] [address] Urine pH April 20, 2025 10:15am April 20, 2025 10:45am 7.0 5.0-9.0 [facility] [id number] [address] [facility] [address] Urine pH April 22, 2025 5:30am April 22, 2025 5:50am 7.5 5.0-9.0 [facility] [id number] [address] [facility] [address] Urine Leukocyt e Esterase April 20, 2025 10:15am April 20, 2025 10:45am 1+ Above high normal Negative [facility] [id number] [address] [facility] [address] Urine Leukocyt e Esterase April 22, 2025 5:30am April 22, 2025 5:50am Negative Negative [facility] [id number] [address] [facility] [address] Urine Nitrite April 20, 2025 10:15am April 20, 2025 10:45am Negative Negative [facility] [id number] [address] [facility] [address] Urine Nitrite April 22, 2025 5:30am April 22, 2025 5:50am Negative Negative [facility] [id number] [address] [facility] [address] Urine Protein April 20, 2025 10:15am April 20, 2025 10:45am Negative mg/dL Negative [facility] [id number] [address] [facility] [address] Urine Protein April 22, 2025 5:30am April 22, 2025 5:50am Negative mg/dL Negative [facility] [id number] [address] [facility] [address] Urine Glucose (UA) April 20, 2025 10:15am April 20, 2025 10:45am Normal mg/dL Normal [facility] [id number] [address] [facility] [address] Urine Glucose (UA) April 22, 2025 5:30am April 22, 2025 5:50am Normal mg/dL Normal [facility] [id number] [address] [facility] [address] Urine Ketones April 20, 2025 10:15am April 20, 2025 10:45am Negative Negative [facility] [id number] [address] [facility] [address] Urine Ketones April 22, 2025 5:30am April 22, 2025 5:50am Negative Negative [facility] [id number] [address] [facility] [address] Urine Urobilin ogen April 20, 2025 10:15am April 20, 2025 10:45am Normal mg/dL Normal [facility] [id number] [address] [facility] [address] Urine Urobilin ogen April 22, 2025 5:30am April 22, 2025 5:50am Normal mg/dL Normal [facility] [id number] [address] [place] [address] Urine Bilirubi n April 20, 2025 10:15am April 20, 2025 10:45am Negative Negative [facility] [id number] [address] [place] [address] Urine Bilirubi n April 22, 2025 5:30am April 22, 2025 5:50am Negative Negative [facility] [id number] [address] [facility] [address] Urine Occult Blood April 20, 2025 10:15am April 20, 2025 10:45am Negative Negative [facility] [id number] [address] [facility] [address] Urine Occult Blood April 22, 2025 5:30am April 22, 2025 5:50am Trace Above high normal Negative [facility] [id number] [address] [facility] [address] Urine RBC April 20, 2025 10:15am April 20, 2025 10:51am 1-2 [HPF] 0-4 [facility] [id number] [address] [facility] [address] Urine RBC April 22, 2025 5:30am April 22, 2025 5:52am 1-2 [HPF] 0-4 [facility] [id number] [address] [facility] [address] Urine WBC April 20, 2025 10:15am April 20, 2025 10:51am None seen [HPF] 0-4 [facility] [id number] [address] [facility] [address] Urine WBC April 22, 2025 5:30am April 22, 2025 5:52am 1-2 [HPF] 0-4 [facility] [id number] [address] [facility] [address] Urine Squamous Epitheli al Cells April 20, 2025 10:15am April 20, 2025 10:51am 10-19 [HPF] Above high normal 0-2 [facility] [id number] [address] [facility] [address] Urine Squamous Epitheli al Cells April 22, 2025 5:30am April 22, 2025 5:52am 3-4 [HPF] Above high normal 0-2 [facility] [id number] [address] [facility] [address] Urine Bacteria April 20, 2025 10:15am April 20, 2025 10:51am 4+ [HPF] Above high normal None Seen [facility] [id number] [address] [facility] [address] Urine Bacteria April 22, 2025 5:30am April 22, 2025 5:52am Rare [HPF] None Seen [facility] [id number] [address] [facility] [address] Urine Hyaline Casts April 20, 2025 10:15am April 20, 2025 10:51am 0-8 [LPF] 0-8 [facility] [id number] [address] [place] [address] Urine Hyaline Casts April 22, 2025 5:30am April 22, 2025 5:52am None [LPF] 0-8 [facility] [id number] [address] [place] [address] Membrane s Rupture (PAMG-1) April 22, 2025 5:31am April 22, 2025 5:54am Positive Above high normal Negative [facility] [id number] [address] [place] [address] Urine Amphetam bob Screen April 22, 2025 5:30am April 22, 2025 6:18am Negative Negative [facility] [id number] [address] [place] [address] Urine Barbitur ates Screen April 22, 2025 5:30am April 22, 2025 6:18am Negative Negative [facility] [id number] [address] [place] [address] Urine Benzodia zepines Screen April 22, 2025 5:30am April 22, 2025 6:18am Negative Negative [facility] [id number] [address] [place] [address] Urine Cocaine Screen April 22, 2025 5:30am April 22, 2025 6:18am Negative Negative [facility] [id number] [address] [place] [address] Urine Opiates Screen April 22, 2025 5:30am April 22, 2025 6:18am Negative Negative [facility] [id number] [address] [place] [address] Urine Phencycl idine Screen April 22, 2025 5:30am April 22, 2025 6:18am Negative Negative These are unconfirme d results and should not be used for legal purposes. Drug Cut-Off Concentrat ion: AMPH 1000 ng/mL PRIMITIVO 200 ng/mL BRYAN 200 ng/mL COCM 300 ng/mL OP 300 ng/mL PCP 25 ng/mL [facility] [id number] [address] [place] [address] RPR w/Reflex to Titer April 22, 2025 5:50am April 24, 2025 5:07am Non reactive Non Reactive [facility] 00 Syphilis Interpre tation April 22, 2025 5:50am April 24, 2025 5:07am Comment . Syphilis: RPR with Reflex to RPR Titer and Treponemal Antibodies , Traditiona l Screening and Diagnosis Algorithm- --------- Treponemal RPR RPR, Qn Ab Final Interpreta tion------ -- --------- ----Non N/A N/A No laboratory evidenceRe active of syphilis. Retest in 2-4 weeks if recent exposure is suspected. -------- --------- ----Reacti ve >/=1:1 Non Nontrepone mal antibodies Reactive detected. Syphilis unlikely; biological false positive possible. Retest in 2-4 weeks if recent exposure is suspected. -------- --------- ----Reacti ve >/=1:1 Reactive Treponemal and nontrepone mal antibodies detected. Consistent with past or current (potential early) syphilis.P erformed at: [facility] [id number] [place], [place] [id number] ab Director: Thierno Kay PhD, Phone: [phone] [email or web address] Microbiology Results Procedure Source Result Collection Date/Time Result Date/Time Result Comment Performing Site Group B Streptococcus Culture Vaginal/R ectal Strep agalactiae - (group b) March 13, 2025 10:15am March 15, 2025 8:45am [facility] [id number] [address] [place] [address] Vital Signs Vital Reading Result Reference Range Collection Date/Time Height 64 [in_i] April 17, 2025 2:56pm Weight 81.64 kg April 17, 2025 2:56pm BP Systolic 129 mm[Hg] 100-140 April 17, 2025 3:30pm BP Diastolic 84 mm[Hg] 60-100 April 17, 2025 3:30pm Height 63 [in_i] April 20, 2025 10:29am Weight 81.64 kg April 20, 2025 10:29am Body Temperature 98.0 [degF] 97.6-99.0 April 20, 2 025 10:30am Heart Rate 72 /min 60-100 April 20, 2025 10:30am Respiratory rate 16 /min 12-April 20, 2 025 10:30am Oxygen saturation by Pulse oximetry 98 % 95-100 April 20, 2025 10:30 am BP Systolic 132 mm[Hg] 100-140 April 20, 2025 10:30am BP Diastolic 85 mm[Hg] 60-100 April 20, 2025 10:30am Height 63 [in_i] April 22, 2025 5:18am Weight 81.19 kg April 22, 2025 6:43am Body Temperature 98.0 [degF] 97.6-99.0 April 23, 2 025 3:13pm Heart Rate 66 /min 60-100 April 23, 2025 3:13pm Respiratory rate 18 /min -April 23, 2 025 5:52pm Oxygen saturation by Pulse oximetry 100 % 95-100 April 23, 2025 3:13p m BP Systolic 128 mm[Hg] 100-140 April 23, 2025 3:13pm BP Diastolic 82 mm[Hg] 60-100 April 23, 2025 3:13pm Advance Directives Advance Directive Response Recorded Date/ Time Advance Directives No March 15 7:17pm Insurance Providers Guarantor Dayana Hunter , [place] Address [address] [place] [address] Contact Info. Home Phone: Payer Policy Id Subscriber's Name Subscriber Id Effectiv e Date Expiration Date Winsome MURPHY [id number] Clif Hunter [id number] Encounters Encounter Location(s) Arrival/Admit Date Discharge/Depart Date Provider(s) Departed Referred -Lab [facility] March 13, 2025 10:15am March 13, 2025 10:16am Tina Vega DO Departed Clinical -3 [facility] April 17, 2025 2:31pm April 17, 2025 3:52pm BELIA MARIN MD Departed Clinical -3 [facility] April 20, 2025 9:31am April 20, 2025 11:45am ASHLEY Chow Discharged Inpatient -3 [facility] April 22, 2025 4:51am April 23, 2025 6:30pm ASHLEY Chow Departed Clinical - Visit April 25, 2025 1:39pm April 25, 2025 1:40pm Sakina Gray Departed Clinical - Visit May 11, 2025 10:35am May 11, 2025 10:36am Summer Barillas MD Departed Clinical - Visit May 16, 2025 1:23pm May 16, 2025 1:24pm aSkina Gray Recent Diagnosis Onset Date Admit Date 40 weeks gestation of Unknown April 22, 2025 4:51am (vaginal after ) Unknown April 22, 2025 4:51am Functional Status Observation Response Date Recorded Dressing Patient at Baseline April 23 5:52pm Eating Patient at Baseline April 23 5:52pm Bathing Patient at Baseline April 23 5:52pm Mental Status Observation Response Date Recorded Cognitive Status Patient at Baseline April 23, 025 5:52pm Cognitive/Mental Status Assessments Assessments Diagnosis Onset Date Resolution Status Admit Date 40 weeks gestation of reso lved April 22, 2025 4:51am (vaginal after ) inactive April 22, 2025 4 :51am Plan of Treatment Future Tests Future scheduled test information is unavailable Pending Tests Pending diagnostic test information is unavailable Future Visits Future appointment information is unavailable Referrals to Other Providers Reason for Referral Referral Start Date Provider Provider Contact Information Provider Address Please keep appointment this coming week. Tina Vega DO Work Phone: [address] [facility] [address] [facility] [address] Tina E Rinkes , DO Work Phone: [address] [place] [address] [facility] [address] Tina Vega , DO Work Phone: [address] [place] [address] [facility] [address] Future Procedures Procedure Name Ordered Date Scheduled Date Discharge Order April 17, 2025 3:45pm April 17, 2025 3:45pm Admit Status Order April 20, 2025 10:29am April 202024 10:29am Discharge Order April 20, 2025 11:19am April 20, 2025 11:19am Admit Status Order April 22, 2025 5:43am April 5:43am Discharge Order April 23, 2025 8:51am April 23, 2025 8:51am Future Medications Future medication information is unavailable Patient Instructions Instruction Admit Date Antepartum Discharge Instructions ([facility] April 17, 2025 2:31pm Antepartum Discharge Instructions ([facility] April 20, 2025 9:31am Know your Meds Post- Discharge Instructions ([facility]) April 22, 2025 4:51am Goals Acute Goals Author Authored Date Experience reduced anxiety * Identifies current stressors * Develops effective coping behaviors * Uses support services as appropriate [facility] April 22, 2025 9:23pm Use of effective pushing techniques [facility] April 22, 2025 9:23pm Report pain at tolerable lev el * Uses pain scale appropriately * Identify options for pain control - Analgesics - Narcotics - Non-medication measures [facility] April 23, 2025 6:35pm Exhibit optimal tissue perfu charito * Exhibits adequate oxygenation and ventilation * Exhibits adequate cardiac output * Regains stable cardiac rhythm * Maintains optimal activity level * Maintains balanced intake and output [facility] April 23, 2025 6:35pm Preferences Type Detail Treatment Intervention Code Status: Full Code Treatment Intervention Code Status: Full Code
--- OUTSIDE RECORDS SUMMARY | 2025-05-29 08:19 | XMS_ITS | Clinical Summary ---
Author Organization [facility] tem Address [id number] [address] [place] [address] Care Team Providers Care Recovery Assistant Name Role Phone Tonya Boles MD Primary Care Provider [phone] Allergies No known active allergies Medications 64-azmn-yefzeb 9-dha 31 mg iron- 1 mg-200 mg [...] drink = 0.6 oz pur e alcohol) [facility] Utilities Answer Date Recorded In the past [...] often do you attend chur ch or yarsanism services? 1 to 4 times per year 10/04/2020 Do you belong to any clubs o r organizations such as sikh groups, unions, fraternal or athletic groups, or [...] Answer Date Recorded Total Score 0 10/04/2020 [facility] [place] of Occupat ional Health - Occupational Stress [...] things needed for daily living? No 01/17/2025 [place] Depression Scale Answer Date Recorded [place] Depression Scale Total 3 11/21/2020 The thought [...] Recorded Do you need help finding a [employer] career center and/or a training program? No [...] Narrative COPATH - 04/05/2020 9:55 AM EDT [facility] [address] [place] [address] Gynecologic Cytology Consultation Patient Name: DONNELL HUNTER : 1990 (Age: 29) Gender: F Taken: 04/02/2020 Reported: 04/05/2020 Physician(s): LIZ Carter ([phone]) Copy To: [facility]. Rec. #: [id number] Acct: # [id number] Final Cytologic Interpretation ThinPrep Pap Test (Cervical): Satisfactory for evaluation. A transformation zone component is present. NEGATIVE FOR INTRAEPITHELIAL LESION OR MALIGNANCY. [facility] [place] [place]/04/05/2020 Interpretation performed at [facility], [address] [place] [address], License number: [id number]. Electronically Signed Out By Neymar Cancelli, CT(ASCP) Date of Last Menstrual Period: 01/05/2020 Other Clinical Conditions: Z01.419 Rib Puller exam wo/abn findings Z3A.12 Source of Specimen ThinPrep Pap Test (Cervical) Thin Prep Pap (INSURANCE SALES ASSISTANT) Fee Code(s): G0145 The Pap test is a screening test with an inherent, but low, probability of error. The Pap test is primarily effective for the diagnosis and prevention of squamous cell carcinoma. Regular screening is critical for prevention. ThinPrep liquid-based slides, which meet the Dovetailer criteria for automated screening, have been screened by the Wedding RealityPrep Imaging System (as of 07/04/07) along with an additional manual rescreening by a carrot harvester and, if indicated, by a pathologist. Ginna Romo ROLL ICER-TRACK SWEEPER PATHOLOGY/CYTOLOGY ORDER CHYNA Final Result COPATH from [...] 10:19 PM 07/24/2017 5:32 PM Care Teams Recovery Assistant Relationship Specialty Start Date End Date Sundayly, Tonya Lasron MD [address] [place] [address] PCP - General Family Medicine 03/29/17
--- OUTSIDE RECORDS SUMMARY | 2025-05-29 08:19 | XMS_ITS | Clinical Summary ---
Author Organization [facility] Address [address] [facility] [place] [address] Care Team Providers Care Receivable Manager Name Role Phone Tonya Boles MD Primary Care Provider [phone] Allergies No known active allergies Medications MV-Min-Fe Fum-FA-DHA ( 1 PO) Take by mouth Active Docosahexaenoic Acid ( DHA) 200 MG capsuleIndicati ons: care, subsequent in first trimester ([facility]) Take 1 capsule by mouth Daily 30 capsule 11 08/23/2024 Active Encounters Date Type Department Care Team Description 04/25/2025 Patient Outreach [facility] [address] [place] [phone] Gladys Hodges LPN 04/23/2025 External Result Encounter [...] MD 04/17/2025 2:45 PM EDT Routine [facility] [address] [place] [address] Tr Baron MD Supervision of normal intrauterine in multigravida, third trimester ([facility]) (Primary Dx); 40 weeks gestation of ([facility]); 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 ([facility]) 04/17/2025 Bamboo flowsheet [facility] [address] [place] [address] Tr Baron MD 04/17/2025 Travel 04/10/2025 2:00 PM EDT Routine [facility] [address] [place] [address] Rindayton, Tina E, DO 39 weeks gestation of ([facility]) 04/10/2025 Bamboo flowsheet [facility] [place] [facility] [address] [place] [phone] Rinkes, Tina E, DO 04/10/2025 Travel 04/03/2025 2:00 PM EDT Routine [facility] [address] [place] [address] Rinkes, Tina E, DO 38 weeks gestation of ([facility]) 04/03/2025 Bamboo flowsheet [facility] [address] [place] [address] Rinkes, Tina E, DO 04/03/2025 Travel 03/27/2025 2:00 PM EDT Routine [facility] [address] [place] [address] Rinkes, Tina E, DO 37 weeks gestation of ([facility]) 03/27/2025 Bamboo flowsheet [facility] [address] [place] [address] Rinkes, Tina E, DO 03/27/2025 Travel 03/20/2025 2:00 PM EDT Routine [facility] [place] [facility] [address] [place] [address] Tina Vega, DO 36 weeks gestation of ([facility]) 03/20/2025 Bamboo flowsheet [facility] [address] [place] [address] Tina Vega, DO 03/20/2025 Travel 03/13/2025 10:15 AM EDT Routine [facility] [address] [place] [address] Tina Vega, DO 35 weeks gestation of ([facility]); screening for streptococcus B ([facility]) 03/13/2025 9:30 AM EDT Ancillary Procedure [facility] [address] [place] [phone] History of pre-eclampsia in prior , currently in third trimester ([facility]); Encounter for ultrasound to check growth ([facility]) 03/13/2025 Travel 02/27/2025 3:30 PM EDT Routine [facility] [address] [place] [place] [address] Tina Vega, DO 33 weeks gestation of ([facility]) 02/27/2025 Bamboo flowsheet [facility] [address] [place] [address] Tina Vega, DO 02/27/2025 Travel from Last [...] OBGYN [address] [place] [address] Tina Vega DO [address] [place] [address] Procedures Procedure Name Priority Date/Time Associated Diagnosis Comments CBC WITH AUTO DIFFERENTIAL Routine 04/23/2025 7:04 AM EDT RPR W/RFX TO QUANT & TP ABS ([facility]) STAT 04/22/2025 5:50 AM EDT CBC WITH AUTO DIFFERENTIAL STAT 04/22/2025 5:50 AM EDT AMNISURE(PAMG-1) STAT 04/22/2025 5:31 AM EDT OB URINE DRUG SCREEN (NO THC) STAT 04/22/2025 5:30 AM EDT URINALYSIS REFLEX STAT 04/22/2025 5:3 0 AM EDT URINALYSIS REFLEX STAT 04/20/2025 10: 15 AM EDT POCT URINALYSIS DIPSTICK Routine 04/18/2025 8:17 AM EDT 40 weeks gestation of ([facility]) POCT URINALYSIS 4 DIPSTICK Routine 04/10/2025 2:21 PM EDT 39 weeks gestation of ([facility]) POCT URINALYSIS 4 DIPSTICK Routine 04/03/2025 2:02 PM EDT 38 weeks gestation of ([facility]) POCT URINALYSIS 4 DIPSTICK Routine 03/27/2025 1:53 PM EDT 37 weeks gestation of ([facility]) POCT URINALYSIS 4 DIPSTICK Routine 03/20/2025 2:07 PM EDT 36 weeks gestation of ([facility]) US OB FOLLOW UP TRANSABDOMINAL APPROACH Routine 03/13/2025 10:32 AM EDT History of pre-eclampsia in prior , currently in third trimester ([facility]) Encounter for ultrasound to check growth ([facility]) POCT URINALYSIS 4 DIPSTICK Routine 03/13/2025 10:20 AM EDT 35 weeks gestation of ([facility]) STREP B SCREEN Routine 03/13/2025 10:15 AM EDT screening for streptococcus B ([facility]) POCT URINALYSIS 4 DIPSTICK Routine 02/27/2025 3:27 PM EDT 33 weeks gestation of ([facility]) from Last 3 Months Results * (ABNORMAL) CBC auto differential (04/23/2025 7:04 AM EDT) Only the most recent of2 resultswithin the time period is included. WBC 10.5 3.8 - 11.6 [CFU]/mL 04/23/2025 7:16 AM EDT [facility] UNCORRECTED WHITE BLOOD COUNT 10.5 3.8 - 11.6 10*3/uL 04/23/2025 7:16 AM EDT [facility] RBC 4.05 3.60 - 5.00 10*6/uL 04/23/2025 7:16 AM EDT [facility] HEMOGLOBIN 12.5 11.8 - 15.4 g/dL 04/23/2025 7:16 AM EDT [facility] HEMATOCRIT 36.6 34.0 - 46.4 % 04/23/2025 7:16 AM EDT [facility] MCV 90.3 80 - 100 fL 04/23/2025 7:16 AM EDT [facility] MCH 30.9 24.7 - 34.3 pg 04/23/2025 7:16 AM EDT [facility] MCHC 34.2 32.0 - 35.0 g/dL 04/23/2025 7:16 AM EDT [facility] RED CELL DISTRIBUTION WIDTH, RDW 13.5 11.9 - 15.3 % 04/23/2025 7:16 AM EDT [facility] PLATELET COUNT 146(L) 150 - 450 10*3/uL 04/23/2025 7:16 AM EDT [facility] MEAN PLATELET VOLUME, MPV 9.4 6.3 - 10.7 fL 04/23/2025 7:16 AM EDT [facility] NEUTROPHILS, % 80.7 . % 04/23/2025 7:16 AM EDT [facility] LYMPHOCYTES, % 12.9 . % 04/23/2025 7:16 AM EDT [facility] MONOCYTE/MACROPHA GE, % 5.8 . % 04/23/2025 7:16 AM EDT [facility] EOSINOPHILS, % 0.3 . % 04/23/2025 7:16 AM EDT [facility] BASOPHILS, % 0.3 . % 04/23/2025 7:16 AM EDT [facility] NRBC 0.1 0 - 0.5 /100{WBC} 04/23/2025 7:16 AM EDT [facility] NEUTROPHILS 8.5(H) 1.8 - 7.7 10*3/uL 04/23/2025 7:16 AM EDT [facility] LYMPHOCYTES 1.3 1.00 - 4.8 10*3/uL 04/23/2025 7:16 AM EDT [facility] MONOCYTES 0.6 0.0 - 0.8 10*3/uL 04/23/2025 7:16 AM EDT [facility] EOSINOPHILS 0.0 0.0 - 0.45 10*3/uL 04/23/2025 7:16 AM EDT [facility] BASOPHILS 0.0 0.0 - 0.2 10*3/uL 04/23/2025 7:16 AM EDT [facility] Blood (Blood) 04/23/2025 7:0 4 AM EDT 04/23/2025 7:07 AM EDT [facility] - 04/23/2025 7:16 AM EDT Comment Draw at 630 am us Hai Chow MD LAB BLOOD ORDERABLES Final Res ult [facility] [address] [place] [address], [facility] [address] [place] [address] * RPR W/RFX TO QUANT & TP ABS ([facility]) (04/22/2025 5:50 AM EDT) RPR, RFX QUANT RPR Non Reactive Non Reactive 04/24/2025 5:07 AM [facility] RPR INTERPRETATION Comment . 04/24/2025 5:07 AM T [facility] Comment: Syphilis: RPR with Reflex to [...] or current (potential early) syphilis. Performed at: [address] [id number] Data Warehouse Analyst: Thierno Kay PhD, Phone: [phone] Other Topography unknown / Unknown 04/22/2025 5:50 AM EDT 04/22/2025 5:59 AM EDT Hai Chow MD LAB BLOOD ORDERABLES Final Res ult Performing Organization Address City/[facility]/[place] [address], * AMNISURE(PAMG-1) (04/22/2025 5:31 AM EDT) AMNISURE Positive Negative 04/22/2025 5:54 AM EDT [facility] Other Topography unknown / Unknown 04/22/2025 5:31 AM EDT 04/22/2025 5:42 AM EDT Narrative [facility] - 04/22/2025 5:54 AM EDT Comment For suspected repture of membranes Hai Chow MD LAB BLOOD ORDERABLES Final Res ult Performing Organization Address [facility]/[place] [address], [place] [address] * OB URINE DRUG SCREEN (NO THC) (04/22/2025 5:30 AM EDT) AMPHETAMINE SCREEN,URINE Negative Negative 04/22/2025 6:18 AM EDT [facility] BARBITURATE SCREEN,URINE Negative Negative 04/22/2025 6:18 AM EDT [facility] BENZODIAZEPINES SCREEN,URINE Negative Negative 04/22/2025 6:18 AM EDT [facility] COCAINE SCREEN,URINE Negative Negative 04/22/2025 6:18 AM EDT [facility] OPIATE SCREEN,URINE Negative Negative 04/22 6:18 AM EDT [facility] PHENCYCLIDINE SCREEN, URINE Negative Negative 04/22/2025 6:18 AM EDT [facility] Comment: These are unconfirmed results and should not be used for legal purposes. Drug Cut-Off Concentration: AMPH 1000 ng/mL PRIMITIVO 200 ng/mL BRYAN 200 ng/mL COCM 300 ng/mL OP 300 ng/mL PCP 25 ng/mL Other 04/22/2025 5:30 AM EDT 04/22/2025 5:42 AM EDT Narrative [facility] - 04/22/2025 6:18 AM EDT Comment s/s of acute impairment us Hai Chow MD LAB BLOOD ORDERABLES Final Res ult [facility] [address] [place] [address], [facility] [address] [place] [address] * Urinalysis with reflex microscopic (04/22/2025 5:30 AM EDT) Only the most recent of2 resultswithin the time period is included. COLOR,URINE Colorless Yellow 04/22/2025 5:50 AM EDT [facility] APPEARANCE,URI NE Clear Clear 04/22/2025 5:50 AM EDT [facility] SPECIFICY GRAVITY,URINE 1.010 1.001 - 1.030 04/22/2025 5:50 AM T [facility] PH,URINE 7.5 5.0 - 9.0 04/22/2025 5:50 AM EDT [facility] LEUKOCYTE ESTERASE,URINE Negative Negative 04/22/2025 5:50 AM EDT [facility] NITRITE,URINE Negative Negative 04/22[facility]25 [facility] Negative Negative mg/dL 04/22[facility]2025 5:[facility] GLUCOSE,URINE (UA) Normal Normal mg/dL 04/22/2025 5:[facility] KETONES,URINE Negative Negative 04/22/2025 5:50 AM EDT [facility] UROBILINOGEN,U RINE Normal Normal mg/dL 04/22/2025 5:[facility] BILIRUBIN,URIN E Negative Negative 04/22/2025 5:[facility] OCCULT BLOOD,URINE Trace Negative 04/22[facility]2025 5:[facility] RBC,URINE 1-2 0 - 4 [HPF] 04/22/2025 5:52 AM EDT [facility] WBC,URINE 1-2 0 - 4 [HPF] 04/22/2025 5:[facility] SQUAMOUS EPITHELIAL CELL,URINE 3-4 0 - 2 [HPF] 04/22/2025 5:52 AM [facility] BACTERIA,URINE Rare None Seen [HPF] 04/22/2025 5:52 AM [facility] HYALINE CASTS,URINE None 0 - 8 [LPF] 04/22/2025 5:52 AM [facility] Other 04/22/2025 5:30 AM EDT 04/22/2025 5:42 AM EDT Narrative [facility] - 04/22/2025 5:52 AM EDT Comment c/o urinary symptoms or increased blood pressure Name Collection Type:: Clean-Voided Midstream us Hai Chow MD LAB URINE ORDERABLES Final Res ult [facility] [address] [place] [address], [facility] [address] [place] [address] * Urine dip (04/18/2025 8:17 AM EDT) [...] Strep B screen (03/13/2025 10:15 AM EDT) [facility] ORGANISM Strep agalactiae - (group b) 03/15/2025 8:45 AM EDT [facility] Swab Vaginal swab / Unknown 03/13/2025 10:15 AM EDT 03/13/2025 3:35 PM EDT Tina Vega DO LAB MICROBIOLOGY - GENERAL ORDERABLES Final Result Performing Organization Address City/State/[facility] Co de Phone Number [facility] [address] [place] [address], [facility] [address] [place] [address] from Last [address] [address] [facility] Care Teams Receivable Manager Relationship Specialty Start Date End Date Tonya Boles MD PCP - General Family Medicine 02/23/23
--- OUTSIDE RECORDS SUMMARY | 2025-05-29 08:19 | XMS_ITS | Encounter Summary ---
Author Organization [employer] Address [id number] [address] [place] [address] Care Team Providers Care Fast Food Services Manager Name Role Phone Tonya Boles MD Primary Care Provider [phone] Encounter Details Date Type Department Care Team (Late st Contact Info) Description 07/19/2023 Telephone [facility] [address] [address] Rica Jimenez Social History Tobacco [...] often do you attend chur ch or voodoo services? 1 to 4 times per year 10/04/2020 Do you belong to any clubs o r organizations such as confucianism groups, unions, fraternal or athletic groups, or [...] Answer Date Recorded Total Score 0 10/04/2020 [facility] - Occupational Stress Questionnaire Answer Date [...] things needed for daily living? No 10/04/2020 [place] Depression Scale Answer Date Recorded [place] Depression Scale Total 3 11/21/2020 The thought of harming myself has occurred to me . Never 11/21/2020 Childcare Answer Date Recorded Do problems getting child ca re make it difficult for you to work or study? No 10/04/2020 Employment Answer Date Recorded Do you need help finding a [employer] career center and/or a training program? No [...] documented as of this encounter Care Teams Fast Food Services Manager Relationship Specialty Start Date End Date Tonya Boles MD [address] [place] [address] PCP - General Family Medicine 03/29/17 documented as of this encounter
--- OUTSIDE RECORDS SUMMARY | 2025-05-29 08:19 | XMS_ITS | Encounter Summary ---
Author Organization [facility] Address [id number] [address] [place] [address] Care Team Providers Care Writing Manager Name Role Phone Tonya Boles MD Primary Care Provider [phone] Encounter Details Date Type Department Care Team (Late st Contact Info) Description 07/10/2020 Telephone [facility] Women's Services - [place] [address] [place] [address] MaryJ o Pedro MA Social History Tobacco Use Types [...] documented as of this encounter Care Teams Writing Manager Relationship Specialty Start Date End Date Elvi, Tonya Larson MD [address] [place] [address] PCP - General Family Medicine 03/29/17 documented as of this encounter
--- OUTSIDE RECORDS SUMMARY | 2025-05-29 08:19 | XMS_ITS | Encounter Summary ---
Author Organization [employer] Address [id number] [address] [place] [address] Care Team Providers Care Power Wheelchair Mechanic Name Role Phone Tonya Boles MD Primary Care Provider Reason for Visit * Reason Comments Med Refill Encounter Details Date Type Department Care Team (Late st Contact Info) Description 04/19/2020 Refill [facility] [address] [place] [phone] Ginna Romo, RED CROSS WORKER-SPECIALTIES OPERATOR [address] [facility] [place], [place] [id number] 12 weeks gestation of Social History Tobacco [...] documented as of this encounter Care Teams Power Wheelchair Mechanic Relationship Specialty Start Date End Date Wonderly, Tonya Larson MD [address] [place] [address] PCP - General Family Medicine 03/29/17 documented as of this encounter
== END 2025-05-29 14:34 | disposition home or self-care (01) ==
PROVIDERS: Visit Provider Obstetrics & Gynecology
DX: Z39.1 Encounter for care and examination of lactating mother (principal)

== ENCOUNTER 2025-06-04 08:34 | Outpatient (OUT) | payer SELFPAY ==
--- NOTE | 2025-06-04 10:34 | PC.NURSE ---
Dayana and 6 week ol Tobias arrive for weight check and support. Mom states feels Tobias is ''getting there . Related first day he really was fussy and wanted supplement but then showed more vigorous sucking and was able to use supplement every other feed. Today weight is 9-1.5, only increased by 2 oz over 6 days. Slow weight gain noted. Revisited supplements and states she has noted more milk in front desk attendant and baby does not seem interested and often spits up when given supplemnt. Also, states pumps 1 oz less in afternoons, and Tobias is more disinterested in feeding. Pt to arrange supplemental feeds according to needs and milk volume. Plans made for Tobias to be evaluated for suck needs per Alaina [facility] [employer] in [place] prior to tongue tie evaluation. Mother validated on choice. suck on gloved finger remains loose and sloppy . Back of tongue not mobile as well as no lateralization left to right in mouth. Tobias alert and interested this AM. Richardson and smiles when talked to. Does not extend tongue past gum ridge with stimulation /encouragement. Nurses 10/10, shows signs of fatigue after 10 minute window. Becomes sleepy, non-nutritive sucking and breast easily falls from mouth. No further questions, scheduled for next week, and will call if needs arise. Leaves ambulatory with Tobias.
== END 2025-06-04 10:47 | disposition home or self-care (01) ==
LOC: FBCO 08:35
PROVIDERS: Visit Provider Obstetrics & Gynecology
DX: Z39.1 Encounter for care and examination of lactating mother (principal)

== ENCOUNTER 2025-06-11 08:57 | Outpatient (OUT) | payer SELFPAY ==
--- OUTSIDE RECORDS SUMMARY | 2025-06-05 11:15 | XMS_ITS | Encounter Summary ---
Author Organization [facility] Address [address] [place] [address] Care Team Providers Care Compliance Specialist Name Role Phone Tonya Boles MD Primary Care Provider [phone] Reason for Visit * Reason Comments Care 04/22/25. Having irregular vaginal spotting. Denies bowel/bladder concerns. Pt is . Pt declines control, Denies intercourse. Denies PP depression. Encounter Details Date Type Department Care Team (Late st Contact Info) Description 06/05/2025 11:15 AM EDT Visit [facility] MARR [address] [facility] [address] [place] [phone] Tina Vega DO [address] [facility] [address] [place] [address] care and examination ([facility]) Social History Tobacco Use Types Packs/Day Years [...] N MILAN Complications: Third degree perineal laceration ([facility]) Name: Baby boy Obstetric Comments Pap smear [...] Review Audit Reviewed by Shannen Conti MA ([employer] Architect) on 06/05/25 at 1134 Medication Order Taking? Sig Documenting Provider Last Dose Status Docosahexaenoic Acid ( DHA) 200 MG capsule [id number] Take 1 capsule by mouth Daily Tina Vega, DO Active Magnesium Gluconate (MAGNESIUM 27 PO) [id number] Yes Take by mouth Tina Vega, DO Active MV-Min-Fe Fum-FA-DHA ( 1 PO) [id number] Take by mouth Active Past Medical History: Diagnosis Date Acute pancreatitis ([facility]) History of pre-eclampsia Past Surgical History: Procedure [...] orders for this visit: care and examination ([facility]) Breast and pelvic exam performed. Patient may [...] as needed. ICD-10-CM 1. care and examination ([facility]) Z39.2 documented in this encounter Plan of Treatment Upcoming Encounters Date Type Department Care Team (Late st Contact Info) Description 06/12/2026 10:45 AM EDT Office Visit [facility] [place] [facility] [address] [place] [address] Tina Vega DO [address] [place] [address] documented as of this encounter Visit Diagnoses Diagnosis care and examination ([facility]) documented in this encounter Care Teams Compliance Specialist Relationship Specialty Start Date End Date Tonya Boles MD PCP - General Family Medicine 02/23/23 documented as of this encounter
--- OUTSIDE RECORDS SUMMARY | 2025-06-11 09:01 | XMS_ITS | Encounter Summary ---
Author Organization [employer] [facility] [employer] Address [id number] [address] [place] [address] Care Team Providers Care Manager Cardiac Cath Name Role Phone Tonya Boles MD Primary Care Provider [phone] Encounter Details Date Type Department Care Team (Late st Contact Info) Description 07/10/2020 Telephone [facility] Women's Services - [facility] [address] [place] [address] Mary Jo Pedro MA Social History Tobacco [...] documented as of this encounter Care Teams Manager Cardiac Cath Relationship Specialty Start Date End Date Elvi, Tonya Larson MD [address] [place] [address] PCP - General Family Medicine 03/29/17 documented as of this encounter
--- OUTSIDE RECORDS SUMMARY | 2025-06-11 09:01 | XMS_ITS | Clinical Summary ---
Author Organization [facility] Address [address] [facility] [place] [address] Care Team Providers Care Green End Worker Name Role Phone Tonya Boles MD Primary Care Provider [phone] Allergies No known active allergies Medications MV-Min-Fe Fum-FA-DHA ( 1 PO) Take by mouth Active Docosahexaenoic Acid ( DHA) 200 MG capsuleIndicati ons: care, subsequent in first trimester ([facility]) Take 1 capsule by mouth Daily 30 capsule 11 08/23/2024 Active Magnesium Gluconate (MAGNESIUM 27 PO) Take by mouth Active Encounters Date Type Department Care Team Description 06/05/2025 11:15 AM EDT Visit [facility] [place] [facility] [address] [facility] [address] [place] [address] Tina Vega DO care and examination ([facility]) 06/05/2025 Travel 04/25/2025 Patient Outreach [facility] [address] 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 ([facility]) 04/17/2025 Bamboo flowsheet [facility] [place] [facility] [address] [place] [address] Tr Baron MD 04/17/2025 Travel 04/10/2025 2:00 PM EDT Routine [facility] [address] [place] [address] Tina Vega E, DO 39 weeks gestation of ([facility]) 04/10/2025 Bamboo flowsheet [facility] [place] [facility] [address] [place] [address] Tina Vega E, DO 04/10/2025 Travel 04/03/2025 2:00 PM EDT Routine [facility] [address] [place] [address] Gary Tina E, DO 38 weeks gestation of ([facility]) 04/03/2025 Bamboo flowsheet [facility] [place] [facility] [address] [place] [address] Tina Vega E, DO 04/03/2025 Travel 03/27/2025 2:00 PM EDT Routine [facility] [place] [facility] [address] [place] [address] Tina Vega, DO 37 weeks gestation of ([facility]) 03/27/2025 Bamboo flowsheet [facility] [address] [place] [address] Tina Vega, DO 03/27/2025 Travel 03/20/2025 2:00 PM EDT Routine [facility] [address] [place] [address] Tina Vega, DO 36 weeks gestation of ([facility]) 03/20/2025 Bamboo flowsheet [facility] [address] [place] [address] Tina Vega, DO 03/20/2025 Travel 03/13/2025 10:15 AM EDT Routine [facility] [address] [place] [address] Tina Vega, DO 35 weeks gestation of ([facility]); screening for streptococcus B ([facility]) 03/13/2025 9:30 AM EDT Ancillary Procedure BRANDIE MARR [address] [place] [address] History of pre-eclampsia in prior , currently in third trimester ([facility]); Encounter for ultrasound to check growth ([facility]) 03/13/2025 Travel from Last 3 Months Social History [...] (155 lb) 06/05/2025 11:34 AM EDT Height 162.6 cm (5' 4 ) 06/09/2022 12:00 PM EDT Body Mass Index 26.61 06/09/2022 12:00 PM EDT Plan of Treatment Upcoming Encounters Date Type Department Care Team (Late st Contact Info) Description 06/12/2026 10:45 AM EDT Office Visit [facility] [address] [place] [address] Tina Vega DO [address] [place] [address] Procedures Procedure Name Priority Date/Time Associated Diagnosis Comments CBC WITH AUTO DIFFERENTIAL Routine 04/23/2025 7:04 AM EDT RPR W/RFX TO QUANT & TP ABS ([facility]) STAT 04/22/2025 5:50 AM EDT CBC WITH AUTO DIFFERENTIAL STAT 04/22/2025 5:50 AM EDT AMNISURE(PAMG-1) STAT 04/22/2025 5:31 AM EDT OB URINE DRUG SCREEN (NO THC) STAT 04/22/2025 5:30 AM EDT URINALYSIS REFLEX STAT 04/22/2025 5:3 0 AM EDT URINALYSIS REFLEX STAT 04/20/2025 10: 15 AM EDT POCT URINALYSIS DIPSTICK Routine 04/18/2025 8:17 AM EDT 40 weeks gestation of ([facility]) POCT URINALYSIS 4 DIPSTICK Routine 04/10/2025 2:21 PM EDT 39 weeks gestation of ([facility]) POCT URINALYSIS 4 DIPSTICK Routine 04/03/2025 2:02 PM EDT 38 weeks gestation of ([facility]) POCT URINALYSIS 4 DIPSTICK Routine 03/27/2025 1:53 PM EDT 37 weeks gestation of ([facility]) POCT URINALYSIS 4 DIPSTICK Routine 03/20/2025 2:07 PM EDT 36 weeks gestation of ([facility]) US OB FOLLOW UP TRANSABDOMINAL APPROACH Routine 03/13/2025 10:32 AM EDT History of pre-eclampsia in prior , currently in third trimester ([facility]) Encounter for ultrasound to check growth ([facility]) POCT URINALYSIS 4 DIPSTICK Routine 03/13/2025 10:20 AM EDT 35 weeks gestation of ([facility]) STREP B SCREEN Routine 03/13/2025 10:15 AM EDT screening for streptococcus B ([facility]) from Last 3 Months Results * (ABNORMAL) CBC auto differential (04/23/2025 7:04 AM EDT) Only the most recent of2 resultswithin the time period is included. WBC 10.5 3.8 - 11.6 [CFU]/mL 04/23/2025 7:16 AM EDT [facility] UNCORRECTED WHITE BLOOD COUNT 10.5 3.8 - 11.6 10*3/uL 04/23/2025 7:16 AM EDT [facility] RBC 4.05 3.60 - 5.00 10*6/uL 04/23/2025 7:16 AM EDT [facility] HEMOGLOBIN 12.5 11.8 - 15.4 g/dL 04/23/2025 7:16 AM EDT [facility] HEMATOCRIT 36.6 34.0 - 46.4 % 04/23/2025 7:16 AM EDT [facility] MCV 90.3 80 - 100 fL 04/23/2025 7:16 AM EDT [facility] MCH 30.9 24.7 - 34.3 pg 04/23/2025 7:16 AM EDT [facility] MCHC 34.2 32.0 - 35.0 g/dL 04/23/2025 7:16 AM EDT [facility] RED CELL DISTRIBUTION WIDTH, RDW 13.5 11.9 - 15.3 % 04/23/2025 7:16 AM EDT [facility] PLATELET COUNT 146(L) 150 - 450 10*3/uL 04/23/2025 7:16 AM EDT [facility] MEAN PLATELET VOLUME, MPV 9.4 6.3 - 10.7 fL 04/23/2025 7:16 AM EDT [facility] NEUTROPHILS, % 80.7 . % 04/23/2025 7:16 AM EDT [facility] LYMPHOCYTES, % 12.9 . % 04/23/2025 7:16 AM EDT [facility] MONOCYTE/MACROPHA GE, % 5.8 . % 04/23/2025 7:16 AM EDT [facility] EOSINOPHILS, % 0.3 . % 04/23/2025 7:16 AM EDT [facility] BASOPHILS, % 0.3 . % 04/23/2025 7:16 AM EDT [facility] NRBC 0.1 0 - 0.5 /100{WBC} 04/23/2025 7:16 AM EDT [facility] NEUTROPHILS 8.5(H) 1.8 - 7.7 10*3/uL 04/23/2025 7:16 AM EDT [facility] LYMPHOCYTES 1.3 1.00 - 4.8 10*3/uL 04/23/2025 7:16 AM EDT [facility] MONOCYTES 0.6 0.0 - 0.8 10*3/uL 04/23/2025 7:16 AM EDT [facility] EOSINOPHILS 0.0 0.0 - 0.45 10*3/uL 04/23/2025 7:16 AM EDT [facility] BASOPHILS 0.0 0.0 - 0.2 10*3/uL 04/23/2025 7:16 AM EDT [facility] Blood (Blood) 04/23/2025 7:0 4 AM EDT 04/23/2025 7:07 AM EDT Narrative [facility] - 04/23/2025 7:16 AM EDT Comment Draw at 630 am us Hai Chow MD LAB BLOOD ORDERABLES Final Res ult [facility] [address] [place] [address], [facility] [address] [place] [address] * RPR W/RFX TO QUANT & TP ABS ([facility]) (04/22/2025 5:50 AM EDT) RPR, RFX QUANT RPR Non Reactive Non Reactive 04/24/2025 5:07 AM T [facility] RPR INTERPRETATION Comment . 04/24/2025 5:07 AM T [facility] Comment: Syphilis: RPR with Reflex to [...] or current (potential early) syphilis. Performed at: [address] [id number] Clay Temperer: Thierno Kay PhD, Phone: [phone] Other Topography unknown / Unknown 04/22/2025 5:50 AM EDT 04/22/2025 5:59 AM EDT us Hai Chow MD LAB BLOOD ORDERABLES Final Res ult Performing Organization Address [facility]/[place] [address], * AMNISURE(PAMG-1) (04/22/2025 5:31 AM EDT) AMNISURE Positive Negative 04/22/2025 5:54 AM EDT [facility] Other Topography unknown / Unknown 04/22/2025 5:31 AM EDT 04/22/2025 5:42 AM EDT Narrative [facility] - 04/22/2025 5:54 AM EDT Comment For suspected repture of membranes us Hai Chow MD LAB BLOOD ORDERABLES Final Res ult Performing Organization Address [facility]/ZIP Co de Phone Number [place] [phone], [place] [phone] * OB URINE DRUG SCREEN (NO THC) (04/22/2025 5:30 AM EDT) AMPHETAMINE SCREEN,URINE Negative Negative 04/22/2025 6:18 AM EDT [facility] BARBITURATE SCREEN,URINE Negative Negative 04/22/2025 6:18 AM EDT [facility] BENZODIAZEPINES SCREEN,URINE Negative Negative 04/22/2025 6:18 AM EDT [facility] COCAINE SCREEN,URINE Negative Negative 04/22/2025 6:18 AM EDT [facility] OPIATE SCREEN,URINE Negative Negative 04/22 6:18 AM EDT [facility] PHENCYCLIDINE SCREEN, URINE Negative Negative 04/22/2025 6:18 AM EDT [facility] Comment: These are unconfirmed results and should not be used for legal purposes. Drug Cut-Off Concentration: AMPH 1000 ng/mL PRIMITIVO 200 ng/mL BRYAN 200 ng/mL COCM 300 ng/mL OP 300 ng/mL PCP 25 ng/mL Other 04/22/2025 5:30 AM EDT 04/22/2025 5:42 AM EDT Narrative [facility] - 04/22/2025 6:18 AM EDT Comment s/s of acute impairment us Hai Chow MD LAB BLOOD ORDERABLES Final Res ult [facility] [address] [place] [phone], [facility] [address] [place] [phone] * Urinalysis with reflex microscopic (04/22/2025 5:30 AM EDT) Only the most recent of2 resultswithin the time period is included. COLOR,URINE Colorless Yellow 04/22/2025 5:50 AM [facility] APPEARANCE,URI NE Clear Clear 04/22/2025 5:50 AM [facility] SPECIFICY GRAVITY,URINE 1.010 1.001 - 1.030 04/22/2025 5:50 AM [facility] PH,URINE 7.5 5.0 - 9.0 04/22/2025 5:50 [facility] LEUKOCYTE ESTERASE,URINE Negative Negative 04/22/2025 [facility] Negative Negative 04/22/2025 5:[facility] PROTEIN,URINE Negative Negative mg/dL 04/22/2025 5:50 AM EDT [facility] GLUCOSE,URINE (UA) Normal Normal mg/dL 04/22/2025 5:50 AM EDT [facility] KETONES,URINE Negative Negative 04/22/2025 5:50 AM EDT [facility] UROBILINOGEN,U RINE Normal Normal mg/dL 04/22/2025 5:50 AM EDT [facility] BILIRUBIN,URIN E Negative Negative 04/22/2025 5:50 AM EDT [facility] OCCULT BLOOD,URINE Trace Negative 04/22/2025 5:50 AM EDT [facility] RBC,URINE 1-2 0 - 4 [HPF] 04/22/2025 5:52 AM EDT [facility] WBC,URINE 1-2 0 - 4 [HPF] 04/22/2025 5:52 AM EDT [facility] SQUAMOUS EPITHELIAL CELL,URINE 3-4 0 - 2 [HPF] 04/22/2025 5:52 AM EDT [facility] BACTERIA,URINE Rare None Seen [HPF] 04/22/2025 5:52 AM EDT [facility] HYALINE CASTS,URINE None 0 - 8 [LPF] 04/22/2025 5:52 AM EDT [facility] Other 04/22/2025 5:30 AM EDT 04/22/2025 5:42 AM EDT Narrative [facility] - 04/22/2025 5:52 AM EDT Comment c/o urinary symptoms or increased blood pressure Name Collection Type:: Clean-Voided Midstream us Hai Chow MD LAB URINE ORDERABLES Final Res ult [facility] [address] [place] [address], [facility] [address] [place] [address] * Urine dip (04/18/2025 8:17 AM EDT) Glucose, UA Negative Negative - 1999(110) ++++ mg/dL Protein, UA Negative Negative - 1999(20) ++++ mg/dL Urine 04/18/2025 8:17 AM EDT us Tr Baron MD POINT OF CARE TEST ENTER/EDIT ORDERABLES Final Result * POCT URINALYSIS 4 DIPSTICK (04/10/2025 2:21 PM EDT) Only the most recent of5 resultswithin the time period is included. Glucose, UA Negative Negative - 1999(110) ++++ mg/dL Protein, UA Negative Negative - 1999(20) ++++ mg/dL Urine 04/10/2025 2:21 PM EDT us Tina Vega DO POINT OF CARE TEST [...] Strep B screen (03/13/2025 10:15 AM EDT) [facility] Strep agalactiae - (group b) 03/15/2025 8:45 AM EDT [facility] Swab Vaginal swab / Unknown 03/13/2025 10:15 AM EDT 03/13/2025 3:35 PM EDT Tina Vega DO LAB MICROBIOLOGY - GENERAL ORDERABLES Final Result Performing Organization Address City/State/[facility] Co de Phone Number [facility] [address] [place] [address], [facility] [address] [place] [address] from Last 3 Months Insurance [facility] Care Teams Green End Worker Relationship Specialty Start Date End Date Tonya Boles MD PCP - General Family Medicine 02/23/23
--- OUTSIDE RECORDS SUMMARY | 2025-06-11 09:01 | XMS_ITS | Encounter Summary ---
Author Organization [employer] Address [id number] [address] [place] [address] Care Team Providers Care Crepe Sole Scourer Name Role Phone Tonya Boles MD Primary Care Provider [phone] Encounter Details Date Type Department Care Team (Late st Contact Info) Description 07/19/2023 Telephone [facility]Gynecology [address] [place] [address] Rica Jimenez Social History Tobacco [...] often do you attend chur ch or religion services? 1 to 4 times per year 10/04/2020 Do you belong to any clubs o r organizations such as denominational groups, unions, fraternal or athletic groups, or [...] Answer Date Recorded Total Score 0 10/04/2020 [facility] - Occupational Stress Questionnaire Answer Date Recorded [...] things needed for daily living? No 10/04/2020 [place] Depression Scale Answer Date Recorded [place] Depression Scale Total 3 11/21/2020 The thought of harming myself has occurred to me . Never 11/21/2020 Childcare Answer Date Recorded Do problems getting child ca re make it difficult for you to work or study? No 10/04/2020 Employment Answer Date Recorded Do you need help finding a [employer] career center and/or a training program? No [...] documented as of this encounter Care Teams Crepe Sole Scourer Relationship Specialty Start Date End Date Tonya Boles MD [address] [place] [address] PCP - General Family Medicine 03/29/17 documented as of this encounter
--- OUTSIDE RECORDS SUMMARY | 2025-06-11 09:01 | XMS_ITS | Encounter Summary ---
Author Organization [facility] Address [address] [place] [address] Care Team Providers Care Wireless Team Member Name Role Phone Tonya Boles MD Primary Care Provider [phone] Encounter Details Date Type Department Care Team (Latest Contact Info) Description 06/05/2025 Travel Social History Tobacco Use Types Packs/Day Years [...] on file documented as of this encounter Plan of Treatment Upcoming Encounters Date Type Department Care Team (Late st Contact Info) Description 06/12/2026 10:45 AM EDT Office Visit [facility]ARR [address] [place] [address] Tina Vega DO [address] [place] [address] documented as of this encounter Visit Diagnoses Not on filedocumented in this encounter Care Teams Wireless Team Member Relationship Specialty Start Date End Date Tonya Boles MD PCP - General Family Medicine 02/23/23 documented as of this encounter
--- OUTSIDE RECORDS SUMMARY | 2025-06-11 09:01 | XMS_ITS | Clinical Summary ---
Author Organization [facility] [facility] tem Address [id number] [address] [place] [address] Care Team Providers Care Optometry Teacher Name Role Phone Tonya Boles MD Primary Care Provider [phone] Allergies No known active allergies Medications 21-uuxz-zwujbo 9-dha 31 mg iron- 1 mg-200 mg [...] drink = 0.6 oz pur e alcohol) [facility] Utilities Answer Date Recorded In the past [...] often do you attend chur ch or anglican services? 1 to 4 times per year 10/04/2020 Do you belong to any clubs o r organizations such as religious groups, unions, fraternal or athletic groups, or [...] Answer Date Recorded Total Score 0 10/04/2020 [facility] - Occupational Stress [...] things needed for daily living? No 01/17/2025 [place] Depression Scale Answer Date Recorded [place] Depression Scale Total 3 11/21/2020 The thought [...] Recorded Do you need help finding a [employer] career center and/or a training program? No [...] Narrative COPATH - 04/05/2020 9:55 AM EDT [facility] [address] [place] [address] Gynecologic Cytology Consultation Patient Name: DONNELL HUNTER : 1990 (Age: 29) Gender: F Taken: 04/02/2020 Reported: 04/05/2020 Physician(s): LIZ Carter ([phone]) Copy To: [facility]. Rec. #: [id number] Acct: # [id number] Final Cytologic Interpretation ThinPrep Pap Test (Cervical): Satisfactory for evaluation. A transformation zone component is present. NEGATIVE FOR INTRAEPITHELIAL LESION OR MALIGNANCY. [facility]/04/05/2020 Interpretation performed at [facility], [address] [place] [address], License number: [id number]. Electronically Signed Out By Neymar Cancelli, CT(ASCP) Date of Last Menstrual Period: 01/05/2020 Other Clinical Conditions: Z01.419 [employer] Folk Arts Instructor exam wo/abn findings Z3A.12 Source of Specimen ThinPrep Pap Test (Cervical) Thin Prep Pap (TELEVISION MECHANIC) Fee Code(s): G0145 The Pap test is a screening test with an inherent, but low, probability of error. The Pap test is primarily effective for the diagnosis and prevention of squamous cell carcinoma. Regular screening is critical for prevention. ThinPrep liquid-based slides, which meet the Transcriber criteria for automated screening, have been screened by the [facility] Imaging System (as of 07/04/07) along with an additional manual rescreening by a secretary office clerk and, if indicated, by a pathologist. Ginna Romo REVIEW CONSULTANT-FAST FOOD SERVICES MANAGER PATHOLOGY/CYTOLOGY ORDER CHYNA Final Result COPATH from [...] 10:19 PM 07/24/2017 5:32 PM Care Teams Optometry Teacher Relationship Specialty Start Date End Date Sundayly, Tonya Larson MD [address] [place] [address] PCP - General Family Medicine 03/29/17
--- NOTE | 2025-06-11 15:11 | PC.NURSE ---
Dayana and Tobias arrive for follow up weight check and feeding check. Mother states baby was assessed by BRIDGE LEVERMAN in [facility], mild upper lip tie and posterior tongue tie involved for and impacting ability to suck. Mom has been doing suck exercises as shown per BRIDGE LEVERMAN. Mom states I think I am noticing a big difference in him, but I do not want to be too optimistic Tobias is bright and alert. Cooing ,smiling during assessment. Noted much stronger at tug of war exercises . Infant weight up to 9-11 today, 10 oz above last week's weight. Mother pleased with gain. To right breast, nurses until finished, weight up 60 grams. To second breast, left side, (more difficult side) and weight is up 60 grams post feed. Mother tearful, I thought he was doing better so pleased that he really is Plan is to continue doing exercises as recommended, directly, offering supplemental pumped milk as last week, reducing amount to 1 oz post feed as gains stamina and strength in feeding. Will keep appointment with BRIDGE LEVERMAN as well. Returning 06/19/2025 for progress check. Dayana pleased with herself and Tobias. DARIEN supports and validates emotions. Home without further questions.
== END 2025-06-11 15:21 | disposition home or self-care (01) ==
LOC: FBCO 08:59
PROVIDERS: Visit Provider Obstetrics & Gynecology
DX: Z39.1 Encounter for care and examination of lactating mother (principal)

== ENCOUNTER 2025-06-19 07:56 | Outpatient (OUT) | payer SELFPAY ==
--- OUTSIDE RECORDS SUMMARY | 2025-06-05 11:15 | XMS_ITS | Encounter Summary ---
Author Organization [facility] Address [address] [place] [address] Care Team Providers Care Bilingual Executive Assistant Name Role Phone Tonya Boles MD Primary Care Provider [phone] Reason for Visit * Reason Comments Care 04/22/25. Having irregular vaginal spotting. Denies bowel/bladder concerns. Pt is . Pt declines control, Denies intercourse. Denies PP depression. Encounter Details Date Type Department Care Team (Late st Contact Info) Description 06/05/2025 11:15 AM EDT Visit [facility] [address] [facility] [address] [place] [address] Tina Vega DO [address] [place] [address] care and examination ([facility]) Social History Tobacco Use Types Packs/Day Years Used Date Smoking Tobacco: Never Smokeless Tobacco: Never Alcohol Use Standard Drinks/Week Comments Not Currently [...] on file documented as of this encounter Last Filed Vital Signs Vital Sign Reading Time Taken Comments Blood Pressure 120/72 06/05/2025 11:34 AM EDT Pulse - - Temperature - - Respiratory Rate - - Oxygen Saturation - - Inhaled Oxygen Concentration - - Weight 70.3 kg (155 lb) 06/05/2025 11:34 AM EDT Height - - Body Mass Index 26.61 06/09/2022 12:00 PM EDT documented in this encounter Progress Notes * Tina Vega DO - 06/05/2025 11:15 AM EDT Images from the original note were not included. Tina Vega D.O. Obstetrics and Gynecology Patient: Dayana Hunter : 1990 (34 y.o.) Exam Date: 06/05/2025 Reason for Visit - Chief Complaint Patient presents with Care 04/22/25. Having irregular vaginal spotting. Denies bowel/bladder concerns. Pt is .Pt declines control, Denies intercourse. Denies PP depression. Visit Vitals BP 120/72 Wt 155 lb LMP 07/11/2024 Yes BMI 26.61 kg/m?? OB Status Recent Smoking Status Never BSA 1.78 m?? No Known Allergies History of Present Illness, Associated Treatments and Results - OB History Para Term AB Living 3 3 3 0 0 3 SAB IAB Ectopic Multiple Live Births 0 0 0 0 3 # Outcome Date GA Lbr Abe/2nd Weight Sex Type Anes PTL Lv 3 Term 04/22/25 40w5d 8 lb 6 oz M MILAN 2 Term 10/05/20 39w1d 8 lb 6.9 oz M CS-LTranv EPI N MILAN Name: CHELSY HUNTER Apgar1: 5 Apgar5: 9 1 Term 07/24/17 40w3d 9 lb M Vag-Spont EPI N MILAN Complications: Third degree perineal laceration ([facility]) Name: Baby boy Obstetric Comments Pap smear 10/03/24 wnl Review of Systems - Const: Denies appetite change, fever, chills. Allergy: Denies medication reaction. Ocular: Denies visual acuity change. ENT: Denies hearing change. Endoc: Denies weight loss. Resp: Denies dyspnoea, wheezing. Cardiac: Denies angina, palpitations. GI: Denies nausea, vomiting. Haem: Denies bleeding. : Denies incontinence. MSK: Denies arthralgias, joint oedema. Derm: Denies rash, hair loss. Neuro: Denies ataxia, tremor. Also see HPI for elements of ROS documented therein and for details of positive findings, which shall supersede the foregoing. Medication Documentation Review Audit Reviewed by Shannen Conti MA (Retail Loss Prevention Officer) on 06/05/25 at 1134 Medication Order Taking? Sig Documenting Provider Last Dose Status Docosahexaenoic Acid ( DHA) 200 MG capsule [id number] Take 1 capsule by mouth Daily Tina Vega, DO Active Magnesium Gluconate (MAGNESIUM 27 PO) [id number] Yes Take by mouth Tina Vega, DO Active MV-Min-Fe Fum-FA-DHA ( 1 PO) [id number] Take by mouth Active Past Medical History: Diagnosis Date Acute pancreatitis ([facility]) History of pre-eclampsia Past Surgical History: Procedure Laterality Date SECTION, LOW TRANSVERSE VAGINAL AFTER SECTION 04/22/2025 VAGINAL DELIVERY WISDOM TOOTH EXTRACTION No family history on file. Physical Exam - General appearance, mentation, extraocular movements, facial strength and movement, hearing, upper and lower extremity strength and tone, sensation to gross testing, coordination, and gait are normalor at baseline unless noted below. General: Alert, cooperative, no distress, appears stated age Head: Normocephalic, without obvious abnormality, atraumatic Eyes: sclera anicteric Ears: no obvious hearing deficit Skin: Warm and dry Breast: no masses palpable bilaterally, normal nipples bilaterally - everted - axilla negative - noskin changes Heart: Regular rate and rhythm, S1 and S2 normal, no murmur Lungs: Clear to auscultation bilaterally, respirations unlabored Abdomen: Soft, non-tender, no masses, no organomegaly Extremities normal, atraumatic, no cyanosis or edema FEMALE GENITOURINARY: normal vaginal mucosa, cervix absent of lesions, nontender, uterus AV, mobile, ovaries nonpalpable and non tender Diagnoses and all orders for this visit: care and examination ([facility]) Breast and pelvic exam performed. Patient may resume normal activities. Discussed contraceptive options at length with the patient- planning barrier contraception for now. Pt is stable . Findings of today's exam discussed with patient. Patient to contact the office if there are any changes in her gynecological conditions, she is to return for her annual exam or as needed. ICD-10-CM 1. care and examination ([facility]) Z39.2 documented in this encounter Plan of Treatment Upcoming Encounters Date Type Department Care Team (Late st Contact Info) Description 06/12/2026 10:45 AM EDT Office Visit [facility] [address] [place] [address] Tina Vega DO [address] [place] [address] documented as of this encounter Visit Diagnoses Diagnosis care and examination ([facility]) documented in this encounter Care Teams Bilingual Executive Assistant Relationship Specialty Start Date End Date Tonya Boles MD PCP - General Family Medicine 02/23/23 documented as of this encounter
--- OUTSIDE RECORDS SUMMARY | 2025-06-19 07:59 | XMS_ITS | Clinical Summary ---
Author Organization [facility] tem Address [id number] [place] [address] Care Team Providers Care Cigar Bander Hand Name Role Phone Tonya Boles MD Primary Care Provider [phone] Allergies No known active allergies Medications 12-[id number]-[id number] 9-dha 31 mg iron- 1 mg-200 mg [...] drink = 0.6 oz pur e alcohol) [facility] Utilities Answer Date Recorded In [...] often do you attend chur ch or nondenominational services? 1 to 4 times per year 10/04/2020 Do you belong to any clubs o r organizations such as rastafari groups, unions, fraternal or athletic groups, or [...] Answer Date Recorded Total Score 0 10/04/2020 [facility] [place] of Occupat ional Health - Occupational Stress [...] things needed for daily living? No 01/17/2025 [place] Depression Scale Answer Date Recorded [place] Depression Scale Total 3 11/21/2020 The thought [...] Recorded Do you need help finding a [employer] career center and/or a training program? No [...] Narrative COPATH - 04/05/2020 9:55 AM EDT [facility] in Laboratory Medicine [address] [place] [address] Gynecologic Cytology Consultation Patient Name: DONNELL HUNTER : 1990 (Age: 29) Gender: F Taken: 04/02/2020 Reported: 04/05/2020 Physician(s): LIZ Carter [phone]) Copy To: [facility]. Rec. #: [id number] Acct: # [id number] Final Cytologic Interpretation ThinPrep Pap Test (Cervical): Satisfactory for evaluation. A transformation zone component is present. NEGATIVE FOR INTRAEPITHELIAL LESION OR MALIGNANCY. [facility]/04/05/2020 Interpretation performed at [facility], [address] [place] [address], License number: [id number]. Electronically Signed Out By Neymar Cancelli, CT(ASCP) Date of Last Menstrual Period: 01/05/2020 Other Clinical Conditions: Z01.419 Rotary Drill Rig Operator exam wo/abn findings Z3A.12 Source of Specimen ThinPrep Pap Test (Cervical) Thin Prep Pap (CLOUD ENGAGEMENT PARTNER) Fee Code(s): G0145 The Pap test is a screening test with an inherent, but low, probability of error. The Pap test is primarily effective for the diagnosis and prevention of squamous cell carcinoma. Regular screening is critical for prevention. ThinPrep liquid-based slides, which meet the Vending Machine Attendant criteria for automated screening, have been screened by the ReceptosPrep Imaging System (as of 07/04/07) along with an additional manual rescreening by a christmas bell ringer and, if indicated, by a pathologist. Ginna Romo DISTRICT SERVICE MANAGER-DONOR RELATIONS OFFICER PATHOLOGY/CYTOLOGY ORDER CHYNA Final Result COPATH from [...] 10:19 PM 07/24/2017 5:32 PM Care Teams Cigar Bander Hand Relationship Specialty Start Date End Date Sundayly, Tonya Larson MD [address] [place] [address] PCP - General Family Medicine 03/29/17
--- OUTSIDE RECORDS SUMMARY | 2025-06-19 07:59 | XMS_ITS | Encounter Summary ---
Author Organization [employer] tem Address [id number] [address] [place] [address] Care Team Providers Care Structural Steel Worker Name Role Phone Tonya Boles MD Primary Care Provider [phone] Encounter Details Date Type Department Care Team (Late st Contact Info) Description 07/19/2023 Telephone [facility] Obstetrics/Gynecology [address] [place] [address] Rica Jimenez Social History Tobacco [...] often do you attend chur ch or mormon services? 1 to 4 times per year 10/04/2020 Do you belong to any clubs o r organizations such as gnosticism groups, unions, fraternal or athletic groups, or [...] Answer Date Recorded Total Score 0 10/04/2020 [facility] - Occupational Stress Questionnaire Answer Date Recorded [...] things needed for daily living? No 10/04/2020 [place] Depression Scale Answer Date Recorded [place] Depression Scale Total 3 11/21/2020 The thought of harming myself has occurred to me . Never 11/21/2020 Childcare Answer Date Recorded Do problems getting child ca re make it difficult for you to work or study? No 10/04/2020 Employment Answer Date Recorded Do you need help finding a [employer] career center and/or a training program? No [...] documented as of this encounter Care Teams Structural Steel Worker Relationship Specialty Start Date End Date Tonya Boles MD [address] [place] [address] PCP - General Family Medicine 03/29/17 documented as of this encounter
--- OUTSIDE RECORDS SUMMARY | 2025-06-19 07:59 | XMS_ITS | Encounter Summary ---
Author Organization [facility] Address [address] [place] [address] Care Team Providers Care Merchandise Manager Name Role Phone Tonya Boles MD Primary Care Provider [phone] Encounter Details Date Type Department Care Team [...] EDT Office Visit [facility] MARR [address] [place] [address] Tina Vega DO [address] [place] [address] documented as of this encounter Visit Diagnoses Not on filedocumented in this encounter Care Teams Merchandise Manager Relationship Specialty Start Date End Date Tonya Boles MD PCP - General Family Medicine 02/23/23 documented as of this encounter
--- OUTSIDE RECORDS SUMMARY | 2025-06-19 07:59 | XMS_ITS | Clinical Summary ---
Author Organization [facility] Address [address] [place] [address] Care Team Providers Care Crew Leader Gluing Name Role Phone Tonya Boles MD Primary Care Provider [phone] Allergies No known active allergies Medications MV-Min-Fe Fum-FA-DHA ( 1 PO) Take by mouth Active Docosahexaenoic Acid ( DHA) 200 MG capsuleIndicati ons: care, subsequent in first trimester ([facility]) Take 1 capsule by mouth Daily 30 capsule 11 08/23/2024 Active Magnesium Gluconate (MAGNESIUM 27 PO) Take by mouth Active Encounters Date Type Department Care Team Description 06/05/2025 11:15 AM EDT Visit [facility] [place] [facility] [address] [facility] [address] [place] [address] Tina Vega DO care and examination ([facility]) 06/05/2025 Travel 04/25/2025 Patient Outreach [facility] [address] 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 ([facility]) 04/17/2025 Bamboo flowsheet [facility] [place] [facility] [address] [place] [address] Tr Baron MD 04/17/2025 Travel 04/10/2025 2:00 PM EDT Routine [facility] [place] [facility] [address] [place] [address] Tina Vega E, DO 39 weeks gestation of ([facility]) 04/10/2025 Bamboo flowsheet [facility] [place] [facility] [address] [place] [address] Tina Vega E, DO 04/10/2025 Travel 04/03/2025 2:00 PM EDT Routine [facility] [place] [facility] [address] [place] [address] Gary Tina E, DO 38 weeks gestation of ([facility]) 04/03/2025 Bamboo flowsheet [facility] [place] [facility] [address] [place] [address] Tina Vega E, DO 04/03/2025 Travel 03/27/2025 2:00 PM EDT Routine [facility] [place] [facility] [address] [place] [address] Tina Vega, DO 37 weeks gestation of ([facility]) 03/27/2025 Bamboo flowsheet BRANDIE MARR [address] [place] [address] Tina Vega, DO 03/27/2025 Travel 03/20/2025 2:00 PM EDT Routine [facility] [address] [place] [address] Tina Vega, DO 36 weeks gestation of ([facility]) 03/20/2025 Bamboo flowsheet BRANDIE MARR [address] [place] [address] Tina Vega, DO 03/20/2025 Travel from Last 3 Months Social History [...] 06/12/2026 10:45 AM EDT Office Visit [facility] [address] [place] [phone] GaryTammyTina Tawnya, DO [address] [place] [address] Procedures Procedure Name Priority Date/Time Associated Diagnosis Comments CBC WITH AUTO DIFFERENTIAL Routine 04/23/2025 7:04 AM EDT RPR W/RFX TO QUANT & TP ABS ([facility]) STAT 04/22/2025 5:50 AM EDT CBC WITH AUTO DIFFERENTIAL STAT 04/22/2025 5:50 AM EDT AMNISURE(PAMG-1) STAT 04/22/2025 5:31 AM EDT OB URINE DRUG SCREEN (NO THC) STAT 04/22/2025 5:30 AM EDT URINALYSIS REFLEX STAT 04/22/2025 5:3 0 AM EDT URINALYSIS REFLEX STAT 04/20/2025 10: 15 AM EDT POCT URINALYSIS DIPSTICK Routine 04/18/2025 8:17 AM EDT 40 weeks gestation of ([facility]) POCT URINALYSIS 4 DIPSTICK Routine 04/10/2025 2:21 PM EDT 39 weeks gestation of ([facility]) POCT URINALYSIS 4 DIPSTICK Routine 04/03/2025 2:02 PM EDT 38 weeks gestation of ([facility]) POCT URINALYSIS 4 DIPSTICK Routine 03/27/2025 1:53 PM EDT 37 weeks gestation of ([facility]) POCT URINALYSIS 4 DIPSTICK Routine 03/20/2025 2:07 PM EDT 36 weeks gestation of ([facility]) from Last 3 Months Results * (ABNORMAL) CBC auto differential (04/23/2025 7:04 AM EDT) Only the most recent of2 resultswithin the time period is included. WBC 10.5 3.8 - 11.6 [CFU]/mL 04/23/2025 7:16 AM EDT [facility] UNCORRECTED WHITE BLOOD COUNT 10.5 3.8 - 11.6 10*3/uL 04/23/2025 7:16 AM EDT [facility] RBC 4.05 3.60 - 5.00 10*6/uL 04/23/2025 7:16 AM EDT [facility] HEMOGLOBIN 12.5 11.8 - 15.4 g/dL 04/23/2025 7:16 AM EDT [facility] HEMATOCRIT 36.6 34.0 - 46.4 % 04/23/2025 7:16 AM EDT [facility] MCV 90.3 80 - 100 fL 04/23/2025 7:16 AM EDT [facility] MCH 30.9 24.7 - 34.3 pg 04/23/2025 7:16 AM EDT [facility] MCHC 34.2 32.0 - 35.0 g/dL 04/23/2025 7:16 AM EDT [facility] RED CELL DISTRIBUTION WIDTH, RDW 13.5 11.9 - 15.3 % 04/23/2025 7:16 AM EDT [facility] PLATELET COUNT 146(L) 150 - 450 10*3/uL 04/23/2025 7:16 AM EDT [facility] MEAN PLATELET VOLUME, MPV 9.4 6.3 - 10.7 fL 04/23/2025 7:16 AM EDT [facility] NEUTROPHILS, % 80.7 . % 04/23/2025 7:16 AM EDT [facility] LYMPHOCYTES, % 12.9 . % 04/23/2025 7:16 AM EDT [facility] MONOCYTE/MACROPHA GE, % 5.8 . % 04/23/2025 7:16 AM EDT [facility] EOSINOPHILS, % 0.3 . % 04/23/2025 7:[address] [facility] BASOPHILS, % 0.3 . % 04/23/2025 7:16 AM EDT [facility] NRBC 0.1 0 - 0.5 /100{WBC} 04/23/2025 7:16 AM EDT [facility] NEUTROPHILS 8.5(H) 1.8 - 7.7 10*3/uL 04/23/2025 7:16 AM EDT [facility] LYMPHOCYTES 1.3 1.00 - 4.8 10*3/uL 04/23/2025 7:16 AM EDT [facility] MONOCYTES 0.6 0.0 - 0.8 10*3/uL 04/23/2025 7:16 AM EDT [facility] EOSINOPHILS 0.0 0.0 - 0.45 10*3/uL 04/23/2025 7:16 AM EDT [facility] BASOPHILS 0.0 0.0 - 0.2 10*3/uL 04/23/2025 7:[address] [facility] Blood (Blood) 04/23/2025 7:0 4 AM EDT 04/23/2025 7:07 AM EDT Narrative [facility] - 04/23/2025 7:16 AM EDT Comment Draw at 630 am us Hai Chow MD LAB BLOOD ORDERABLES Final Res ult Performing Organization Address City/State/[facility] Co de Phone Number [facility] [address] [place] [address], [facility] [address] [place] [id number] * RPR W/RFX TO QUANT & TP ABS ([facility]) (04/22/2025 5:50 AM EDT) RPR, RFX QUANT RPR Non Reactive Non Reactive 04/24/2025 5:07 AM EDT [facility] RPR INTERPRETATION Comment . 04/24/2025 5:07 AM T [facility] Comment: Syphilis: RPR with Reflex to RPR [...] or current (potential early) syphilis. Performed at: [address] [id number] Production Manufacturing Worker: Thierno Kay PhD, Phone: [phone] Other Topography unknown / Unknown 04/22/2025 5:50 AM EDT 04/22/2025 5:59 AM EDT us Hai Chow MD LAB BLOOD ORDERABLES Final Res ult [facility] [place] [address], * AMNISURE(PAMG-1) (04/22/2025 5:31 AM EDT) AMNISURE Positive Negative 04/22/2025 5:[address] [facility] Other Topography unknown / Unknown 04/22/2025 5:31 AM EDT 04/22/2025 5:42 AM EDT Narrative [facility] - 04/22/2025 5:54 AM EDT Comment For suspected repture of membranes us Hai Chow MD LAB BLOOD ORDERABLES Final Res ult Performing Organization Address [facility] de Phone Number [facility] [address] [place] [address], [facility] [address] [place] [address] * OB URINE DRUG SCREEN (NO THC) (04/22/2025 5:30 AM EDT) [facility] AMPHETAMINE SCREEN,URINE Negative Negative 04/22/2025 6:[address] [facility] BARBITURATE SCREEN,URINE Negative Negative 04/22/2025 6:[address] [facility] BENZODIAZEPINES SCREEN,URINE Negative Negative 04/22/2025 6:18 AM EDT [facility] COCAINE SCREEN,URINE Negative Negative 04/22/2025 6:[address] [facility] OPIATE SCREEN,URINE Negative Negative 04/22 6:18 AM EDT [facility] PHENCYCLIDINE SCREEN, URINE Negative Negative 04/22/2025 6:[address] [facility] Comment: These are unconfirmed results and should not be used for legal purposes. Drug Cut-Off Concentration: AMPH 1000 ng/mL PRIMITIVO 200 ng/mL BRYAN 200 ng/mL COCM 300 ng/mL OP 300 ng/mL PCP 25 ng/mL Other 04/22/2025 5:30 AM EDT 04/22/2025 5:42 AM EDT Narrative [facility] - 04/22/2025 6:18 AM EDT Comment s/s of acute impairment us Hai Chow MD LAB BLOOD ORDERABLES Final Res ult Performing Organization Address [facility] Co de Phone Number [facility] [address] [facility] [address], [facility] [address] [place] [address] * Urinalysis with reflex microscopic (04/22/2025 5:30 AM EDT) Only the most recent of2 resultswithin the time period is included. COLOR,URINE Colorless Yellow 04/22/2025 5:50 AM [facility] APPEARANCE,URI NE Clear Clear 04/22/2025 5:50 AM [facility] SPECIFICY GRAVITY,URINE 1.010 1.001 - 1.030 04/22/2025 5:50 AM [facility] PH,URINE 7.5 5.0 - 9.0 04/22/2025 5:50 AM [facility] LEUKOCYTE ESTERASE,URINE Negative Negative 04/22/2025 5:50 AM [facility] NITRITE,URINE Negative Negative 04/22/2025 5:50 AM [facility] PROTEIN,URINE Negative Negative mg/dL 04/22/2025 5:50 AM [facility] GLUCOSE,URINE (UA) Normal Normal mg/dL 04/22/2025 5:50 AM [facility] KETONES,URINE Negative Negative 04/22/2025 5:50 AM [facility] UROBILINOGEN,U RINE Normal Normal mg/dL 04/22/2025 5:50 AM [facility] BILIRUBIN,URIN E Negative Negative 04/22/2025 5:50 AM [facility] OCCULT BLOOD,URINE Trace Negative 04/22/2025 5:50 AM [facility] RBC,URINE 1-2 0 - 4 [HPF] 04/22/2025 5:52 AM [facility] WBC,URINE 1-2 0 - 4 [HPF] 04/22/2025 5:52 AM [facility] SQUAMOUS EPITHELIAL CELL,URINE 3-4 0 - 2 [HPF] 04/22/2025 5:52 AM [facility] BACTERIA,URINE Rare None Seen [HPF] 04/22/2025 5:52 AM [facility] HYALINE CASTS,URINE None 0 - 8 [LPF] 04/22/2025 5:52 AM [facility] Other 04/22/2025 5:30 AM EDT 04/22/2025 5:42 AM EDT Narrative [facility] - 04/22/2025 5:52 AM EDT Comment c/o urinary symptoms or increased blood pressure Name Collection Type:: Clean-Voided Midstream Hai Chow MD LAB URINE ORDERABLES Final Res ult [facility] [address] [place] [address], [facility] [address] [place] [address] * Urine dip (04/18/2025 8:17 AM EDT) Glucose, UA Negative Negative - 1999(110) ++++ mg/dL Protein, UA Negative Negative - 1999(20) ++++ mg/dL Urine 04/18/2025 8:17 AM EDT Tr Baron MD POINT OF CARE TEST ENTER/EDIT ORDERABLES Final Result * POCT URINALYSIS 4 DIPSTICK (04/10/2025 2:21 PM EDT) Only the most recent of4 resultswithin the time period is included. Glucose, UA Negative Negative - 1999(110) ++++ mg/dL Protein, UA Negative Negative - 2000(20) ++++ mg/dL Urine 04/10/2025 2:21 PM EDT Tina Vega DO POINT OF CARE TEST ENTER/ED IT ORDERABLES Final Result from Last 3 Months Insurance BS Care Teams Crew Leader Gluing Relationship Specialty Start Date End Date Tonya Boles MD PCP - General Family Medicine 02/23/23
--- OUTSIDE RECORDS SUMMARY | 2025-06-19 07:59 | XMS_ITS | Encounter Summary ---
Author Organization [facility] Address [facility][id number] [address] [place] [address] Care Team Providers Care Shagger Name Role Phone Tonya Boles MD Primary Care Provider [phone] Encounter Details Date Type Department Care Team (Late st Contact Info) Description 07/10/2020 Telephone [facility] [address] [place] [address] Mary Jo Pedro MA Social History Tobacco [...] documented as of this encounter Care Teams Shagger Relationship Specialty Start Date End Date Elvi, Tonya Larson MD [address] [place] [address] PCP - General Family Medicine 03/29/17 documented as of this encounter
--- NOTE | 2025-06-19 15:19 | PC.NURSE ---
Dayana and Tobias (7+3 weeks old) arrive for support and for weight check. Tobias is fussy as he is hungry at the moment. Weight obtained at 4706 gms (10-6) increased from 9-11 last week. Mom states was so worried about weight, and supply . Does not notice and supply issues, pumping going well and has plenty for supplements for baby. Tobias is spending longer, more vigorous breast feeds. Breasts soften with feeds and firm in between. Has had to pump a few times when not planning to due to feeling really full Only offered supplement in late afternoons and evenings when felt milk supply was waning. Also reports that he messed around with the bottle a lot and took him a while to finish .. This week goal is to not supplement after each feed, but to only supplement when baby really acts hungry after a feed. May include extra time at breast, as needed. Will decide if needs to pump or not. Mom and baby will return 06/22/2025 for weight check. Infant nursed 03/10, post feed weight up 2.5 oz after right breast and another 2.5 oz after left breast. Dayana pleased with progress and amount Tobias able to take. has regular suck, strong and rhythmic, with audible swallows. More stamina noted as well. Family leaves for home without questions or concerns.
== END 2025-06-19 15:45 | disposition home or self-care (01) ==
LOC: FBCO 07:57
PROVIDERS: Visit Provider Obstetrics & Gynecology
DX: Z39.1 Encounter for care and examination of lactating mother (principal)

== ENCOUNTER 2025-06-22 10:13 | Outpatient (OUT) | payer SELFPAY ==
--- NOTE | 2025-06-22 10:15 | PC.NURSE ---
0840 Patient arrives ambulatory to unit with baby Tobias for weight check today. Patient states she saw Tamiko NOWAK regularly the last few weeks, most recently on Wednesday06/22/25 where baby's weight was up and feeding was going well. is 8 weeks old, smiling and engaging socially, following auditory stimuli and holding eye contact, appears well. Patient reports large stool diaper shortly before arriving, frequent void/stool diapers, and is latching to feed every 90 minutes to 2.5 hours, feeding well and content after feeds. Baby stripped to diaper, weight obtained 4865g 10#11.4oz today. Patient states goal for baby was to gain 1/2 oz every day since 06/19/25. Much praise and reassurance to mom and baby. Patient denies further needs at this time, will follow up with Tamiko as needed. No further appointment scheduled, patient has contact information if needed.
--- OUTSIDE RECORDS SUMMARY | 2025-06-22 10:18 | XMS_ITS | Encounter Summary ---
Author Organization [employer] Address [id number] [address] [place] [address] Care Team Providers Care State'S Attorney Name Role Phone Tonya Boles MD Primary Care Provider [phone] Encounter Details Date Type Department Care Team (Late st Contact Info) Description 07/19/2023 Telephone [facility] Obstetrics/Gynecology [address] [place] [address] Rica Jimenez Social History Tobacco [...] often do you attend chur ch or tenriism services? 1 to 4 times per year 10/04/2020 Do you belong to any clubs o r organizations such as methodist groups, unions, fraternal or athletic groups, or [...] Answer Date Recorded Total Score 0 10/04/2020 [facility] - Occupational Stress Questionnaire Answer Date [...] things needed for daily living? No 10/04/2020 [place] Depression Scale Answer Date Recorded [place] Depression Scale Total 3 11/21/2020 The thought of harming myself has occurred to me . Never 11/21/2020 Childcare Answer Date Recorded Do problems getting child ca re make it difficult for you to work or study? No 10/04/2020 Employment Answer Date Recorded Do you need help finding a [employer] career center and/or a training program? No [...] advise. Thank you. * Telephone Encounter - Drai Estrada MD - 07/19/2023 1:36 PM EDT [...] documented as of this encounter Care Teams State'S Attorney Relationship Specialty Start Date End Date Tonya Boles MD [address] [place] [address] PCP - General Family Medicine 03/29/17 documented as of this encounter
--- OUTSIDE RECORDS SUMMARY | 2025-06-22 10:19 | XMS_ITS | Clinical Summary ---
Author Organization [facility] tem Address [id number] [address] [place] [address] Care Team Providers Care Customer Service Representative Teacher Name Role Phone Tonya Boles MD Primary Care Provider [phone] Allergies No known active allergies Medications [id number] 9-dha 31 mg iron- 1 mg-200 mg [...] drink = 0.6 oz pur e alcohol) [facility] Utilities Answer Date Recorded In [...] often do you attend chur ch or christian services? 1 to 4 times per year 10/04/2020 Do you belong to any clubs o r organizations such as protestant groups, unions, fraternal or athletic groups, or [...] Answer Date Recorded Total Score 0 10/04/2020 [facility] of Occupat ional Health - Occupational Stress [...] things needed for daily living? No 01/17/2025 [place] Depression Scale Answer Date Recorded [place] Depression Scale Total 3 11/21/2020 The [...] Recorded Do you need help finding a [employer] career center and/or a training program? No [...] Narrative COPATH - 04/05/2020 9:55 AM EDT [facility] [address] [place] [address] Gynecologic Cytology Consultation Patient Name: DONNELL HUNTER : 1990 (Age: 29) Gender: F Taken: 04/02/2020 Reported: 04/05/2020 Physician(s): LIZ Carter ([phone]) Copy To: [facility]. Rec. #: [id number] Acct: # [id number] Final Cytologic Interpretation ThinPrep Pap Test (Cervical): Satisfactory for evaluation. A transformation zone component is present. NEGATIVE FOR INTRAEPITHELIAL LESION OR MALIGNANCY. [facility]/04/05/2020 Interpretation performed at [facility], [address] [place] [address], License number: [id number]. Electronically Signed Out By Neymar Cancelli, CT(ASCP) Date of Last Menstrual Period: 01/05/2020 Other Clinical Conditions: Z01.419 Bisque Kiln Placer exam wo/abn findings Z3A.12 Source of Specimen ThinPrep Pap Test (Cervical) Thin Prep Pap (WAITER/WAITRESS COCKTAIL LOUNGE) Fee Code(s): G0145 The Pap test is a screening test with an inherent, but low, probability of error. The Pap test is primarily effective for the diagnosis and prevention of squamous cell carcinoma. Regular screening is critical for prevention. ThinPrep liquid-based slides, which meet the Plant Hr Manager criteria for automated screening, have been screened by the [employer] Holdings[employer] Imaging System (as of 07/04/07) along with an additional manual rescreening by a certification and selection specialist and, if indicated, by a pathologist. Ginna Romo EXPENSE ANALYST-[employer] HEAD INSPECTOR AND ADJUSTER PATHOLOGY/CYTOLOGY ORDER CHYNA Final Result COPATH from [...] 10:19 PM 07/24/2017 5:32 PM Care Teams Customer Service Representative Teacher Relationship Specialty Start Date End Date Sundayly, Tonya Larson MD [address] [place] [address] PCP - General Family Medicine 03/29/17
--- OUTSIDE RECORDS SUMMARY | 2025-06-22 10:19 | XMS_ITS | Clinical Summary ---
Author Organization [facility] Address [address] [place] [address] Care Team Providers Care Push Button Switch Assembler Name Role Phone Tonya Boles MD Primary Care Provider [phone] Allergies No known active allergies Medications MV-Min-Fe Fum-FA-DHA ( 1 PO) Take by mouth Active Docosahexaenoic Acid ( DHA) 200 MG capsuleIndicati ons: care, subsequent in first trimester ([facility]) Take 1 capsule by mouth Daily 30 capsule 11 08/23/2024 Active Magnesium Gluconate (MAGNESIUM 27 PO) Take by mouth Active Encounters Date Type Department Care Team Description 06/05/2025 11:15 AM EDT Visit [facility] [address] [facility] [address] [place] [address] Tina Vega DO care and examination ([facility]) 06/05/2025 Travel 04/25/2025 Patient Outreach [facility] [address] 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 ([facility]) 04/17/2025 Bamboo flowsheet [facility] [place] [facility] [address] [place] [address] Tr Baron MD 04/17/2025 Travel 04/10/2025 2:00 PM EDT Routine [facility] [address] [place] [address] Tina Vega E, DO 39 weeks gestation of ([facility]) 04/10/2025 Bamboo flowsheet [facility] [place] [facility] [address] [place] [address] Tina Vega E, DO 04/10/2025 Travel 04/03/2025 2:00 PM EDT Routine [facility] [place] [facility] [address] [place] [phone] Gary Tina E, DO 38 weeks gestation of ([facility]) 04/03/2025 Bamboo flowsheet [facility] [address] [place] [address] Tina Vega E, DO 04/03/2025 Travel 03/27/2025 2:00 PM EDT Routine [facility] [address] [place] [address] Tina Vega, 37 weeks gestation of ([facility]) 03/27/2025 Bamboo flowsheet [facility] [address] [place] [phone] Tina Vega DO 03/27/2025 Travel from Last 3 Months Social History [...] 06/12/2026 10:45 AM EDT Office Visit [facility] [place] [facility] [address] [place] [phone] Tina Vega, DO [address] [place] [address] Procedures Procedure Name Priority Date/Time Associated Diagnosis Comments CBC WITH AUTO DIFFERENTIAL Routine 04/23/2025 7:04 AM EDT RPR W/RFX TO QUANT & TP ABS ([facility] [place] [place]) STAT 04/22/2025 5:50 AM EDT CBC WITH AUTO DIFFERENTIAL STAT 04/22/2025 5:50 AM EDT AMNISURE(PAMG-1) STAT 04/22/2025 5:31 AM EDT OB URINE DRUG SCREEN (NO THC) STAT 04/22/2025 5:30 AM EDT URINALYSIS REFLEX STAT 04/22/2025 5:3 0 AM EDT URINALYSIS REFLEX STAT 04/20/2025 10: 15 AM EDT POCT URINALYSIS DIPSTICK Routine 04/18/2025 8:17 AM EDT 40 weeks gestation of ([facility]) POCT URINALYSIS 4 DIPSTICK Routine 04/10/2025 2:21 PM EDT 39 weeks gestation of ([facility]) POCT URINALYSIS 4 DIPSTICK Routine 04/03/2025 2:02 PM EDT 38 weeks gestation of ([facility]) POCT URINALYSIS 4 DIPSTICK Routine 03/27/2025 1:53 PM EDT 37 weeks gestation of ([facility]) from Last 3 Months Results * (ABNORMAL) CBC auto differential (04/23/2025 7:04 AM EDT) Only the most recent of2 resultswithin the time period is included. WBC 10.5 3.8 - 11.6 [CFU]/mL 04/23/2025 7:16 AM EDT [facility] UNCORRECTED WHITE BLOOD COUNT 10.5 3.8 - 11.6 10*3/uL 04/23/2025 7:16 AM EDT [facility] RBC 4.05 3.60 - 5.00 10*6/uL 04/23/2025 7:16 AM EDT [facility] HEMOGLOBIN 12.5 11.8 - 15.4 g/dL 04/23/2025 7:16 AM EDT [facility] HEMATOCRIT 36.6 34.0 - 46.4 % 04/23/2025 7:16 AM EDT [facility] MCV 90.3 80 - 100 fL 04/23/2025 7:16 AM EDT [facility] MCH 30.9 24.7 - 34.3 pg 04/23/2025 7:16 AM EDT [facility] MCHC 34.2 32.0 - 35.0 g/dL 04/23/2025 7:16 AM EDT [facility] RED CELL DISTRIBUTION WIDTH, RDW 13.5 11.9 - 15.3 % 04/23/2025 7:16 AM EDT [facility] PLATELET COUNT 146(L) 150 - 450 10*3/uL 04/23/2025 7:16 AM EDT [facility] MEAN PLATELET VOLUME, MPV 9.4 6.3 - 10.7 fL 04/23/2025 7:16 AM EDT [facility] NEUTROPHILS, % 80.7 . % 04/23/2025 7:16 AM EDT [facility] LYMPHOCYTES, % 12.9 . % 04/23/2025 7:16 AM EDT [facility] MONOCYTE/MACROPHA GE, % 5.8 . % 04/23/2025 7:16 AM EDT [facility] EOSINOPHILS, % 0.3 . % 04/23/2025 7:16 AM EDT [facility] BASOPHILS, % 0.3 . % 04/23/2025 7:16 AM EDT [facility] NRBC 0.1 0 - 0.5 /100{WBC} 04/23/2025 7:16 AM EDT [facility] NEUTROPHILS 8.5(H) 1.8 - 7.7 10*3/uL 04/23/2025 7:16 AM EDT [facility] LYMPHOCYTES 1.3 1.00 - 4.8 10*3/uL 04/23/2025 7:16 AM EDT [facility] MONOCYTES 0.6 0.0 - 0.8 10*3/uL 04/23/2025 7:16 AM EDT [facility] EOSINOPHILS 0.0 0.0 - 0.45 10*3/uL 04/23/2025 7:16 AM EDT [facility] BASOPHILS 0.0 0.0 - 0.2 10*3/uL 04/23/2025 7:16 AM EDT [facility] Blood (Blood) 04/23/2025 7:0 4 AM EDT 04/23/2025 7:07 AM EDT Narrative [facility] - 04/23/2025 7:16 AM EDT Comment Draw at 630 am us Hai Chow MD LAB BLOOD ORDERABLES Final Res ult [facility] [address] [place] [address], [facility] [address] [place] [phone] * RPR W/RFX TO QUANT & TP ABS ([facility] [place] [place]) (04/22/2025 5:50 AM EDT) RPR, RFX QUANT RPR Non Reactive Non Reactive 04/24/2025 5:07 AM EDT [facility] RPR INTERPRETATION Comment . 04/24/2025 5:07 AM T [facility] Comment: Syphilis: RPR with Reflex [...] or current (potential early) syphilis. Performed at: [facility] [address] [id number] Daycare Worker: Thierno Kay PhD, Phone: [phone] Other Topography unknown / Unknown 04/22/2025 5:50 AM EDT 04/22/2025 5:59 AM EDT Hai Chow MD LAB BLOOD ORDERABLES Final Res ult Performing Organization Address City/[facility]/ZIP Co de Phone Number [facility] [address] [place] [address], * AMNISURE(PAMG-1) (04/22/2025 5:31 AM EDT) AMNISURE Positive Negative 04/22/2025 5:54 AM EDT [facility] Other Topography unknown / Unknown 04/22/2025 5:31 AM EDT 04/22/2025 5:42 AM EDT Narrative [facility] - 04/22/2025 5:54 AM EDT Comment For suspected repture of membranes Hai Chow MD LAB BLOOD ORDERABLES Final Res ult Performing Organization Address [facility]/ZIP Co de Phone Number [facility] [address] [phone], [place] [phone] * OB URINE DRUG SCREEN (NO THC) (04/22/2025 5:30 AM EDT) AMPHETAMINE SCREEN,URINE Negative Negative 04/22/2025 6:18 AM EDT [facility] BARBITURATE SCREEN,URINE Negative Negative 04/22/2025 6:18 AM EDT [facility] BENZODIAZEPINES SCREEN,URINE Negative Negative 04/22/2025 6:18 AM EDT [facility] COCAINE SCREEN,URINE Negative Negative 04/22/2025 6:18 AM EDT [facility] OPIATE SCREEN,URINE Negative Negative 04/22 6:18 AM EDT [facility] PHENCYCLIDINE SCREEN, URINE Negative Negative 04/22/2025 6:18 AM EDT [facility] Comment: These are unconfirmed results and should not be used for legal purposes. Drug Cut-Off Concentration: AMPH 1000 ng/mL PRIMITIVO 200 ng/mL BRYAN 200 ng/mL COCM 300 ng/mL OP 300 ng/mL PCP 25 ng/mL Other 04/22/2025 5:30 AM EDT 04/22/2025 5:42 AM EDT Narrative [facility] - 04/22/2025 6:18 AM EDT Comment s/s of acute impairment us Hai Chow MD LAB BLOOD ORDERABLES Final Res ult [facility] [address] [place] [address], [facility] [address] [phone] * Urinalysis with reflex microscopic (04/22/2025 5:30 AM EDT) Only the most recent of2 resultswithin the time period is included. COLOR,URINE Colorless Yellow 04/22/2025 5:[facility],URI NE Clear Clear 04/22/2025 5:50 AM [facility] SPECIFICY GRAVITY,URINE 1.010 1.001 - 1.030 04/22/2025 5:50 AM [facility] PH,URINE 7.5 5.0 - 9.0 04/22/2025 5:50 AM EDT [facility] LEUKOCYTE ESTERASE,URINE Negative Negative 04/22/2025 5:50 AM EDT [facility] NITRITE,URINE Negative Negative 04/22/2025 5:50 AM EDT [facility] PROTEIN,URINE Negative Negative mg/dL 04/22/2025 5:50 [facility] GLUCOSE,URINE (UA) Normal Normal mg/dL 04/22/2025 5:50 AM EDT [facility] KETONES,URINE Negative Negative 04/22/2025 5:[facility] UROBILIN[facility]EN,U RINE Normal Normal mg/dL 04/22/2025 5:50 [facility] BILIRUBIN,URIN E Negative Negative 04/22/2025 5:50 AM EDT [facility] OCCULT BLOOD,URINE Trace Negative 04/22/2025 5:50 [facility] RBC,URINE 1-2 0 - 4 [HPF] 04/22/2025 5:52 [facility] WBC,URINE 1-2 0 - 4 [HPF] 04/22/2025 5:52 AM EDT [facility] SQUAMOUS EPITHELIAL CELL,URINE 3-4 0 - 2 [HPF] 04/22/2025 5:52 [facility] BACTERIA,URINE Rare None Seen [HPF] 04/22/2025 5:52 [facility] HYALINE CASTS,URINE None 0 - 8 [LPF] 04/22/2025 5:52 AM [facility] Other 04/22/2025 5:30 AM EDT 04/22/2025 5:42 AM EDT Narrative [facility] - 04/22/2025 5:52 AM EDT Comment c/o urinary symptoms or increased blood pressure Name Collection Type:: Clean-Voided Midstream us Hai Chow MD LAB URINE ORDERABLES Final Res ult [facility] [address] [place] [address], [facility] [address] [place] [address] * Urine dip (04/18/2025 8:17 AM EDT) Glucose, UA Negative Negative - 1999(110) ++++ mg/dL Protein, UA Negative Negative - 1999(20) ++++ mg/dL Urine 04/18/2025 8:17 AM EDT Tr Baron MD POINT OF CARE TEST ENTER/EDIT ORDERABLES Final Result * POCT URINALYSIS 4 DIPSTICK (04/10/2025 2:21 PM EDT) Only the most recent of3 resultswithin the time period is included. Glucose, UA Negative Negative - 1999(110) ++++ mg/dL Protein, UA Negative Negative - 1999(20) ++++ mg/dL Urine 04/10/2025 2:21 PM EDT Tina Vega DO POINT OF CARE TEST ENTER/ED IT ORDERABLES Final Result from Last 3 Months Insurance [facility] Care Teams Push Button Switch Assembler Relationship Specialty Start Date End Date Tonya Boles MD PCP - General Family Medicine 02/23/23
--- OUTSIDE RECORDS SUMMARY | 2025-06-22 10:19 | XMS_ITS | Encounter Summary ---
Author Organization [facility] Address [id number] [address] [place] [address] Care Team Providers Care Residential Sales Manager Name Role Phone Tonya Boles MD Primary Care Provider [phone] Encounter Details Date Type Department Care Team (Late st Contact Info) Description 07/10/2020 Telephone [facility] [address] [place] [address] Mary Jo Pedro MA Social History Tobacco [...] documented as of this encounter Care Teams Residential Sales Manager Relationship Specialty Start Date End Date Elvi, Tonya Larson MD [address] [place] [address] PCP - General Family Medicine 03/29/17 documented as of this encounter
== END 2025-06-22 10:14 | disposition home or self-care (01) ==
LOC: FBCO 10:16
PROVIDERS: Visit Provider Obstetrics & Gynecology
DX: Z39.1 Encounter for care and examination of lactating mother (principal)